=== PATIENT | male | born 2000 | race African-American/Black ===

== ENCOUNTER 2021-05-04 09:27 | Emergency (ER) | payer OTHER, SELFPAY ==
--- NOTE | ~2021-05-04 | XR_ITS ---
EXAMINATION: XR CHEST CLINICAL INFORMATION: Pain COMPARISON: None TECHNIQUE: Frontal view of the chest was obtained. FINDINGS: The cardiomediastinal silhouette is within normal limits. The lungs are well expanded. There is no focal consolidation, edema. Subtle blunting of the right costophrenic angle, from postsurgical variation versus subtle pleural thickening or trace effusion. No significant pleural effusion. No pneumothorax. No acute osseous abnormality. XR/XR chest 1V IMPRESSION: No acute pulmonary process seen.
[2021-05-04 09:41] VITALS: BP 142/84; PULSE 105; RESP 18; TEMP 36.8; O2SAT 98; BMI 33.5
--- NOTE | 2021-05-04 09:56 | ECG_ITS ---
Test Reason : chest pain Blood Pressure : / mmHG Vent. Rate : 096 BPM Atrial Rate : 096 BPM P-R Int : 158 ms QRS Dur : 120 ms QT Int : 346 ms P-R-T Axes : 040 026 055 degrees QTc Int : 437 ms Normal sinus rhythm RSR' or QR pattern in V1 suggests right ventricular conduction delay Borderline ECG No previous ECGs available Referred By: Pam Oseguera Electronically Signed By:Mode Wood
--- NOTE | 2021-05-04 10:06 | ED.CHESTPAIN ---
HPI - Chest Pain General Chief Complaint: Chest Pain Stated Complaint: chest pain blood in spit Time Seen by Provider: 05/04/21 09:55 Source: patient Mode of arrival: ambulatory Limitations: no limitations History of Present Illness MD complaint: chest pain Pertinent past history: other (RBBB) Onset (ago): month(s) (2) Timing of current episode: episodic Prior episodes: Yes Onset: after eating Pain location: substernal and left chest Pain radiation: none Severity: moderate Quality: heaviness Relieving factors: nothing Exacerbating factors: eating and supine Context: other (2 months seems worse at night and in AM notes sometimes when he coughs or brushes his teeth he sees blood x 2 months) Associated symptoms: cough Treatment prior to arrival: none Related Data Previous Rx's Medication Instructions Recorded omeprazole 20 mg capsule,delayed 20 mg PO DAILY #30 cap 05/04/21 release Allergies Allergy/AdvReac Type Severity Reaction Status Date / Time No Known Allergies Allergy Verified 05/04/21 09:45 Review of Systems Review of Systems: Constitutional : No Weight loss, No Fever, No Chills ENT/Mouth : No sore throat, No Rhinorrhea Eyes: No Eye Pain, No Swelling Cardiovascular : pos Chest Pain, no SOB, no Dyspnea on Exertion, No Orthopnea, No Edema, No Palpitations Respiratory : No Cough, No Sputum Gastrointestinal : no Nausea, No Vomiting, No Diarrhea, No abdominal Pain, No Hematochezia, No Melena Genitourinary : No Dysuria, No Urinary Frequency Musculoskeletal : No joint pain, No Myalgias, No Joint Swelling Skin : No Skin Lesions, No rash Neuro : No Weakness, No Numbness, No Dizziness, No Headache Psych : No Anxiety/Panic, No Depression Heme/Lymph: No Bruising, No Lymphadenopathy Endocrine : No Polyuria, No Polydipsia All other systems reviewed and are negative [facility] Past Medical History Attestation statement: The following information was validated with the patient. Medical History RBBB Schizophrenia Social History Social History Alcohol intake: never Patient Tobacco Use Status: Former Tobacco user Substance Use Type: Marijuana Advance Directives: No Advance Directives Information Provided: No Physical Exam Vital Signs: Vital Signs: Last Vital Signs Temp 98.8 F 05/04/21 10:50 Pulse 84 05/04/21 10:50 Resp 14 05/04/21 10:50 BP 116/73 05/04/21 10:50 Pulse Ox 94 05/04/21 10:50 BMI result Body Mass Index 33.5 Appearance: Alert. Oriented X3. No acute distress. Eyes: Pupils equal, round and reactive to light. ENT: Pharynx normal. Neck: Normal inspection. Neck supple. CVS: Normal heart rate and rhythm. Pulses normal. Respiratory: No respiratory distress. Breath sounds normal. Abdomen: Soft and non-tender. Skin: Skin warm and dry. Normal skin color. Normal skin turgor. Extremities: No lower extremity edema. No calf ttp Neuro: Oriented X 3. No motor deficit. No sensory deficit. Course Course Course Narrative: other than mild bump in LFTs stable for DC - Cr normal MDM - Chest Pain MDM Narrative Medical decision making narrative: 20 yo male with hx of schizophrenia and RBBB here with 2 months of chest pain and intermittent bouts of noting blood when he brushes his teeth or sometimes has coughing in AM and sees blood in his mucous he is a former smoker he also notes that eating bothers him and feels that when he eats his chest feels full. Does not take OTC medications. This has been going on for 2 months doubt ACS or PE (tachycardic but no signs of DVT) will obtain CXR, labs, EKG, troponin x 1. Symptoms also concerning for GERD. He was incarcerated will need TB test with PCP - wears a mask. Lab Data Result diagrams: 05/04/21 10:48 05/04/21 10:48 Labs: Lab Results 05/04/21 05/04/21 05/04/21 Range/Units 10:48 10:48 10:48 WBC 7.8 (4.8-10.8) X10*3/uL RBC 4.55 L (4.60-5.80) X10*6/uL Hgb 13.4 L (14.0-18.0) g/dl Hct 40.7 L (42.0-52.0) % MCV 89.5 (80.0-98.0) fL MCH 29.5 (27.0-33.0) pg MCHC 32.9 (31.0-36.0) g/dl RDW 12.5 (11.0-16.0) % Plt Count 258 (160-400) X10*3/uL MPV 10.2 (9.4-12.4) fL Immature Gran % (Auto) 0.8 H (0.0-0.4) % Neut % (Auto) 40.0 L (45-73) % Lymph % (Auto) 30.9 (20-40) % [place] % (Auto) 10.0 (2-11) % Eos % (Auto) 17.8 H (0-4) % Baso % (Auto) 0.5 (0-2) % Lymph # (Auto) 2.4 (1.2-4.9) X10*3/uL [place] # (Auto) 0.8 (0.1-1.2) X10*3/uL Eos # (Auto) 1.4 H (0.0-0.4) X10*3/uL Baso # (Auto) 0.0 (0.0-0.2) X10*3/uL Abs Immat Gran (auto) 0.06 H (0.00-0.03) X10*3/uL Absolute Neuts (auto) 3.1 (2.0-8.3) x10*3/uL Absolute Nucleated RBC 0.000 (0.0-0.012) X10*3/uL Nucleated RBC % (auto) 0.0 (0.0-0.2) /100WBC Sodium 140 (135-145) mmol/L Potassium 4.1 (3.3-5.1) mmol/L Chloride 109 H (96-108) mmol/L Carbon Dioxide 23 (22-29) mmol/L Anion Gap 12 (12-20) BUN 9 (9-16) mg/dL Creatinine 0.74 (0.5-1.4) mg/dL Estim Creat Clear Calc 199.8 Estimated GFR > 60 Random Glucose 115 (60-115) mg/dL Calcium 9.7 (8.4-10.2) mg/dL Magnesium 1.8 (1.6-2.6) mg/dL Total Bilirubin 0.3 (0.0-1.0) mg/dL Direct Bilirubin 0.2 (0.0-0.5) mg/dL AST 48 H (5-37) U/L ALT 117 H (0-40) U/L Alkaline Phosphatase 111 (39-117) U/L Troponin I High Sens < 3.5 (<3.5-35.0) ng/L C-Reactive Protein 0.15 (< or = 0.50) mg/dL Total Protein 7.0 (6.5-8.0) g/dL Albumin 4.3 (3.5-5.0) g/dL COVID-19 ([facility]) (Negative) COVID-19 Clin Com 05/04/21 Range/Units 10:48 WBC (4.8-10.8) X10*3/uL RBC (4.60-5.80) X10*6/uL Hgb (14.0-18.0) g/dl Hct (42.0-52.0) % MCV (80.0-98.0) fL MCH (27.0-33.0) pg MCHC (31.0-36.0) g/dl RDW (11.0-16.0) % Plt Count (160-400) X10*3/uL MPV (9.4-12.4) fL Immature Gran % (Auto) (0.0-0.4) % Neut % (Auto) (45-73) % Lymph % (Auto) (20-40) % [place] % (Auto) (2-11) % Eos % (Auto) (0-4) % Baso % (Auto) (0-2) % Lymph # (Auto) (1.2-4.9) X10*3/uL [place] # (Auto) (0.1-1.2) X10*3/uL Eos # (Auto) (0.0-0.4) X10*3/uL Baso # (Auto) (0.0-0.2) X10*3/uL Abs Immat Gran (auto) (0.00-0.03) X10*3/uL Absolute Neuts (auto) (2.0-8.3) x10*3/uL Absolute Nucleated RBC (0.0-0.012) X10*3/uL Nucleated RBC % (auto) (0.0-0.2) /100WBC Sodium (135-145) mmol/L Potassium (3.3-5.1) mmol/L Chloride (96-108) mmol/L Carbon Dioxide (22-29) mmol/L Anion Gap (12-20) BUN (9-16) mg/dL Creatinine (0.5-1.4) mg/dL Estim Creat Clear Calc Estimated GFR Random Glucose (60-115) mg/dL Calcium (8.4-10.2) mg/dL Magnesium (1.6-2.6) mg/dL Total Bilirubin (0.0-1.0) mg/dL Direct Bilirubin (0.0-0.5) mg/dL AST (5-37) U/L ALT (0-40) U/L Alkaline Phosphatase (39-117) U/L Troponin I High Sens (<3.5-35.0) ng/L C-Reactive Protein (< or = 0.50) mg/dL Total Protein (6.5-8.0) g/dL Albumin (3.5-5.0) g/dL COVID-19 ([facility]) Negative (Negative) COVID-19 Clin Com See Note ECG Data ECG #1: Attestation: I personally reviewed and interpreted this ECG as follows: ECG interpretation date: 05/04/21 ECG interpretation time: 10:06 Interpretation: Rate: 96 Rhythm: NSR [place]: normal Normal P waves. Normal SHANIA. RBBB ST T wave : normal no SHAY qTC: normal prior studies: states he has prior RBBB that he had done before he went into [facility] The study has been interpreted contemporaneously by me. . Discharge Plan Discharge Clinical Impression: Atypical chest pain, Elevated liver enzymes GERD with esophagitis Qualifiers: Esophagitis bleeding: without hemorrhage Qualified Code(s): K21.00 - Gastro-esophageal reflux disease with esophagitis, without bleeding Patient Disposition: Home, Self-Care Instructions: Chest Pain (DC), Gastroesophageal Reflux Disease (ED) Additional Instructions: return to ED for any worsening symptoms or concerns small elevation in liver enzymes - repeat with PCP in 2 weeks heart tests negative Chest xray negative TB test to be done with PCP Prescriptions: New omeprazole 20 mg capsule,delayed release(DR/EC) 20 mg PO DAILY Qty: 30 1RF Referrals: Andreas Reddy [Physician] - 2 weeks
[2021-05-04 10:50] VITALS: BP 116/73; PULSE 84; RESP 14; TEMP 37.1; O2SAT 94
[2021-05-04 10:56] LABS: MANUAL DIFF FLAG NO
[2021-05-04 11:00] LABS: Basophils Percent Auto 0.5 % (0-2); Eosinophils Absolute Auto 1.4 X10*3/uL (0.0-0.4); Eosinophils Percent Auto 17.8 % (0-4); Hematocrit 40.7 % (42.0-52.0); Hemoglobin 13.4 g/dl (14.0-18.0); Imm Gran Abs Auto 0.06 X10*3/uL (0.00-0.03); Imm Gran Pct Auto 0.8 % (0.0-0.4); Lymphocytes Absolute Auto 2.4 X10*3/uL (1.2-4.9); Lymphocytes Percent Auto 30.9 % (20-40); Mean Corpuscular HGB Conc 32.9 g/dl (31.0-36.0); Mean Corpuscular Hemoglobin 29.5 pg (27.0-33.0); Mean Corpuscular Volume 89.5 fL (80.0-98.0); Mean Platelet Volume 10.2 fL (9.4-12.4); Monocytes Absolute Auto 0.8 X10*3/uL (0.1-1.2); Neutrophils Absolute Auto 3.1 x10*3/uL (2.0-8.3); Platelet Count 258 X10*3/uL (160-400); Red Blood Count 4.55 X10*6/uL (4.60-5.80); Red Cell Distribution Width 12.5 % (11.0-16.0); White Blood Count 7.8 X10*3/uL (4.8-10.8)
[2021-05-04] MEDS: Magnesium Hydrox/Alum Hydrox 30 ML ORAL.SUSP 15 ML PO (11:00)
[2021-05-04] MEDS: Lidocaine HCl Viscous 2 % 15 ML SOLUTION MUCOUS MEM (11:01)
[2021-05-04 11:13] LABS: COVID-19 Test Negative (Negative)
[2021-05-04 11:22] LABS: Troponin-I High Sensitivity < 3.5 ng/L (<3.5-35.0)
[2021-05-04 11:24] LABS: Alanine Aminotransferase 117 U/L (0-40); Albumin Level 4.3 g/dL (3.5-5.0); Alkaline Phosphatase 111 U/L (39-117); Anion Gap 12 (12-20); Aspartate Amino Transferase 48 U/L (5-37); Bilirubin Direct 0.2 mg/dL (0.0-0.5); Bilirubin Total 0.3 mg/dL (0.0-1.0); Blood Urea Nitrogen 9 mg/dL (9-16); C Reactive Protein 0.15 mg/dL (< or = 0.50); Calcium 9.7 mg/dL (8.4-10.2); Carbon Dioxide 23 mmol/L (22-29); Chloride 109 mmol/L (96-108); Creatinine Clr Calc Pharmacy 199.8; Estimated Glomerular Filt Rate > 60; Glucose Random 115 mg/dL (60-115); Magnesium 1.8 mg/dL (1.6-2.6); Potassium 4.1 mmol/L (3.3-5.1); Sodium 140 mmol/L (135-145)
[2021-05-04 12:06] LABS: Lithium 0.39 mmol/L (0.60-1.20)
== END 2021-05-04 11:59 | disposition home or self-care (01) ==
PROVIDERS: Emergency Provider Emergency Medicine
DX: R07.89 Other chest pain (principal); K21.00 Gastro-esophageal reflux disease with esophagitis, without bleeding; R74.8 Abnormal levels of other serum enzymes; Z20.822 Contact with and (suspected) exposure to COVID-19; I45.10 Unspecified right bundle-branch block; F12.90 Cannabis use, unspecified, uncomplicated; Z72.89 Other problems related to lifestyle; Z87.891 Personal history of nicotine dependence
CPT/HCPCS: 36415; 71045; 80048; 80076; 80178; 83735; 84484; 85025; 86140; 87635; 93005; 99283; 99284

== ENCOUNTER 2021-06-28 17:37 | Emergency (ER) | payer MEDICARE, MEDICAID, SELFPAY ==
--- NOTE | ~2021-06-28 | XR_ITS ---
EXAMINATION: XR soft tissue neck, XR chest 1V CLINICAL INFORMATION: Reason for Exam swallowed Wire Tie COMPARISON: None. TECHNIQUE: AP and lateral views of the neck PA view of the chest FINDINGS: AP and lateral views of the neck show no radiographically conspicuous foreign body. Paraspinal and prevertebral soft tissues unremarkable. Normal symmetric lung volumes. No parenchymal consolidation. No pleural effusion. No pneumothorax. Cardiomediastinal silhouette and pulmonary vascularity are within normal limits. No acute osseous abnormalities. XR/XR soft tissue neck IMPRESSION: No foreign bodies are radiographically evident. Lungs are clear.
--- NOTE | ~2021-06-28 | XR_ITS ---
EXAMINATION: XR soft tissue neck, XR chest 1V CLINICAL INFORMATION: Reason for Exam swallowed Wire Tie COMPARISON: None. TECHNIQUE: AP and lateral views of the neck PA view of the chest FINDINGS: AP and lateral views of the neck show no radiographically conspicuous foreign body. Paraspinal and prevertebral soft tissues unremarkable. Normal symmetric lung volumes. No parenchymal consolidation. No pleural effusion. No pneumothorax. Cardiomediastinal silhouette and pulmonary vascularity are within normal limits. No acute osseous abnormalities. XR/XR chest 1V IMPRESSION: No foreign bodies are radiographically evident. Lungs are clear.
[2021-06-28 17:43] VITALS: BP 132/70; PULSE 83; RESP 18; TEMP 36.6; O2SAT 98; BMI 40.0
--- NOTE | 2021-06-28 18:24 | ED.GENADULT ---
HPI - General Adult General Chief complaint: General Medical Stated complaint: throat pain/peice of plastic stuck in throat Time Seen by Provider: 06/28/21 18:24 Source: patient Mode of arrival: ambulatory Limitations: no limitations History of Present Illness HPI narrative: Patient apparently ate twist tie while eating hamburger feel/foreign body sensation in the throat no vomiting no chest pain no abdominal pain no speech problem Related Data Home Medications Medication Instructions Recorded Confirmed bisacodyl 5 mg tablet 5 mg PO BEDTIME 06/15/21 06/15/21 chlorpromazine 200 mg tablet 200 mg PO BEDTIME 06/15/21 06/15/21 lithium carbonate 300 mg capsule 0 mg PO BID PRN 06/15/21 06/15/21 mirtazapine 15 mg tablet 15 mg PO BEDTIME 06/15/21 06/15/21 risperidone 3 mg tablet 3 mg PO BID 06/15/21 06/15/21 sennosides 8.6 mg tablet 8.6 mg PO BID 06/15/21 06/15/21 Previous Rx's Medication Instructions Recorded omeprazole 20 mg capsule,delayed 20 mg PO DAILY #30 cap 05/04/21 release Allergies Allergy/AdvReac Type Severity Reaction Status Date / Time No Known Allergies Allergy Verified 06/28/21 17:42 Review of Systems Review of Systems: Yes all other systems are reviewed and are negative [facility] Past Medical History Attestation statement: The following information was validated with the patient. Medical History (Updated 06/28/21 @ 19:06 by Mayito Mortnesen MD) RBBB Schizophrenia Family History Family History (Updated 06/15/21 @ 11:50 by Tuan Willingham PA-C) Mother Breast cancer, Onset Age: 59 Social History Social History Housing: Assisted Living Facility Alcohol intake: never Patient Tobacco Use Status: Former Tobacco user e-Cigarette/Vaping Use: Never Used Second Hand Smoke Exposure: No Substance Use Type: Marijuana Advance Directives: No Advance Directives Information Provided: No service: No Current occupational status: unemployed and disabled Current occupational exposures/hazards: No Cognitive needs: Yes Hearing needs: No Vision needs: No Physical Exam ED Vital Signs: Vital Signs - 24 hr 06/28/21 17:43 Temperature 97.9 F Pulse Rate 83 Respiratory Rate 18 Blood Pressure 132/70 Pulse Oximetry 98 BMI result Body Mass Index 40.0 Appearance: Alert. Oriented X3. No acute distress. Anxious ENT: Pharynx normal. Oral Mucosa moist Neck: Normal inspection. Neck supple. No stridor CVS: Normal heart rate and rhythm. Pulses normal. Respiratory: No respiratory distress. Equal air entry bilateral, no wheezing/rales/rhonchi Abdomen: Soft and nontender. Bowel sounds are present, no mass palpable, Neuro: Oriented X 3. Medical Decision Making MDM Narrative Medical decision making narrative: X-ray of the neck and chest x-ray negative for in foreign body patient denies any significant abdominal pain discharge patient home with advise to come back to the ER if abdominal pain Critical Care Time Critical Care Time Critical Care Time: No Discharge Plan Discharge Clinical Impression: Foreign body, swallowed Patient Disposition: Home, Self-Care Instructions: Foreign Body Ingestion (ED) Additional Instructions: Report to the ER if increased abdominal pain/bleeding per rectum We do not see any foreign body in the x-ray Prescriptions: No Action omeprazole 20 mg capsule,delayed release(DR/EC) 20 mg PO DAILY Qty: 30 1RF chlorpromazine 200 mg tablet 200 mg PO BEDTIME 0RF mirtazapine 15 mg tablet 15 mg PO BEDTIME 0RF lithium carbonate 300 mg capsule 0 mg PO BID PRN0RF risperidone 3 mg tablet 3 mg PO BID 0RF sennosides 8.6 mg tablet 8.6 mg PO BID 0RF bisacodyl 5 mg tablet 5 mg PO BEDTIME 0RF Interventions: ED Discharge Assessment Last Done: 06/28/21 19:10 Discharge Date/Time: 06/28/21 19:11
== END 2021-06-28 19:11 | disposition home or self-care (01) ==
PROVIDERS: Emergency Provider Internal Medicine
DX: R07.0 Pain in throat (principal); R09.89 Other specified symptoms and signs involving the circulatory and respiratory systems; Z79.899 Other long term (current) drug therapy; Z87.891 Personal history of nicotine dependence
CPT/HCPCS: 70360; 71045; 99283

== ENCOUNTER 2021-09-10 11:07 | Outpatient (REF) | payer MEDICARE, MEDICAID, SELFPAY ==
--- NOTE | ~2021-09-10 | XR_ITS ---
EXAMINATION: XR CHEST CLINICAL INFORMATION: Coughing up blood and mucus x1 year COMPARISON: None TECHNIQUE: 2 views of the chest were obtained. FINDINGS: No significant abnormality is noted involving the heart, lungs, mediastinum, bony thorax or soft tissues. XR/XR chest 2V IMPRESSION: Unremarkable chest examination.
== END 2021-09-10 11:08 | disposition home or self-care (01) ==
LOC: HO.XRAY 11:07
PROVIDERS: PCP Physician Assistant; Visit Provider Physician Assistant
DX: R04.2 Hemoptysis (principal)
CPT/HCPCS: 71046

== ENCOUNTER 2021-09-11 10:03 | Outpatient (REF) | payer MEDICARE, MEDICAID, SELFPAY ==
[2021-09-11 11:18] LABS: Hematocrit 42.5 % (42.0-52.0); Mean Corpuscular HGB Conc 32.9 g/dl (31.0-36.0); Mean Corpuscular Hemoglobin 28.7 pg (27.0-33.0); Mean Corpuscular Volume 87.1 fL (80.0-98.0); Mean Platelet Volume 10.5 fL (9.4-12.4); Platelet Count 349 X10*3/uL (160-400); Red Blood Count 4.88 X10*6/uL (4.60-5.80); Red Cell Distribution Width 12.4 % (11.0-16.0)
[2021-09-11 11:27] LABS: Estimated Average Glucose 108 mg/dL; Hemoglobin A1C 130.5016 umol/L; Hemoglobin A1c % 5.4 %
[2021-09-11 12:09] LABS: Alanine Aminotransferase 48 U/L (0-40); Albumin Level 4.6 g/dL (3.5-5.0); Alkaline Phosphatase 100 U/L (39-117); Anion Gap 15 (12-20); Aspartate Amino Transferase 37 U/L (5-37); Bilirubin Total < 0.2 mg/dL (0.0-1.0); Blood Urea Nitrogen 14 mg/dL (9-16); Calcium 9.8 mg/dL (8.4-10.2); Carbon Dioxide 23 mmol/L (22-29); Chloride 107 mmol/L (96-108); Cholesterol 220 mg/dL; Estimated Glomerular Filt Rate > 60; Glucose Fasting 92 mg/dL (60-99); HDL Cholesterol 64 mg/dL; LDL Cholesterol Calculated 113 mg/dl; Potassium 4.6 mmol/L (3.3-5.1); Sodium 140 mmol/L (135-145); Total Protein 7.7 g/dL (6.5-8.0); Triglycerides 219 mg/dL
[2021-09-11 12:12] LABS: TSH reflex Free T4 0.81 uIU/mL (0.32-4.0)
== END 2021-09-11 10:04 | disposition home or self-care (01) ==
LOC: HO.LAB 10:03
PROVIDERS: PCP Physician Assistant; Visit Provider Physician Assistant
DX: Z13.29 Encounter for screening for other suspected endocrine disorder (principal); Z13.220 Encounter for screening for lipoid disorders
CPT/HCPCS: 36415; 80053; 80061; 83036; 84443; 85027

== ENCOUNTER → 2021-09-15 12:31 | Outpatient (BNVA) | payer MEDICARE, MEDICAID, SELFPAY | PROVIDERS: PCP Physician Assistant; Visit Provider Physician Assistant | DX: E66.01 Morbid (severe) obesity due to excess calories (principal); K59.01 Slow transit constipation; K21.9 Gastro-esophageal reflux disease without esophagitis; Z68.42 Body mass index [BMI] 45.0-49.9, adult | CPT/HCPCS: 99202 ==

== ENCOUNTER 2021-09-24 14:53 | Outpatient (REF) | payer MEDICARE, MEDICAID, SELFPAY ==
--- NOTE | ~2021-09-24 | CT_ITS ---
EXAMINATION: CT CHEST WITHOUT CONTRAST CLINICAL INFORMATION: Hemoptysis. COMPARISON: Normal chest x-ray 09/10/2021. TECHNIQUE: Multidetector volumetric CT imaging of the chest was done. Axial MIP volume rendering provided. Sagittal and coronal reformatted images were obtained. Patient refused IV contrast. This CT examination was performed using dose optimization techniques as appropriate, variously including the following: *Automated exposure control *Adjustment of mA and/or kV according to patient size (this includes techniques or standardized protocols for targeted exams where dose is matched to indication/reason for exam; i.e. extremities or head) *Use of iterative reconstruction technique DLP: 300 mGy-cm FINDINGS: OCCUPATIONAL MEDICINE SPECIALIST: Unremarkable. LUNGS: The lungs are well expanded and clear of acute pneumonic process. There are no pulmonary nodules, mass or consolidation. No ground-glass density, bronchiectasis or interstitial thickening. Minimal focal atelectatic changes are seen in the right lung base. MEDIASTINUM: The thyroid lobes are symmetric and normal. The trachea and the bronchi are widely patent. There is residual thymus visualized in the anterior mediastinum. There is no pericardial effusion. No abnormal size mediastinal or hilar lymph nodes. PLEURA: There is no pleural effusion. No pleural mass or thickening. AXILLA: No lymphadenopathy. UPPER ABDOMEN: The right hepatic lobe is mildly attenuated but no focal lesion is seen. Visualized spleen, gallbladder and pancreas appear unremarkable. OSSEOUS STRUCTURES: No lytic or sclerotic process is seen. CT/CT chest wo con IMPRESSION: Focal atelectatic changes in the right lung base. Fleischner guidelines were followed.
== END 2021-09-24 14:54 | disposition home or self-care (01) ==
LOC: HO.CT 14:53
PROVIDERS: Visit Provider Physician Assistant
DX: R04.2 Hemoptysis (principal)
CPT/HCPCS: 71250

== ENCOUNTER → 2021-11-12 11:05 | Outpatient (BNVA) | payer MEDICARE, MEDICAID, SELFPAY | PROVIDERS: PCP Physician Assistant; Visit Provider Dietitian, Registered | DX: E66.01 Morbid (severe) obesity due to excess calories (principal); Z68.42 Body mass index [BMI] 45.0-49.9, adult; Z71.3 Dietary counseling and surveillance | CPT/HCPCS: 97802 ==

== ENCOUNTER → 2021-11-18 12:11 | Outpatient (BNVA) | payer MEDICARE, MEDICAID, SELFPAY | PROVIDERS: PCP Physician Assistant; Referring Provider Physician Assistant; Visit Provider Physician Assistant | DX: K21.9 Gastro-esophageal reflux disease without esophagitis (principal); K58.2 Mixed irritable bowel syndrome; F17.210 Nicotine dependence, cigarettes, uncomplicated | CPT/HCPCS: 99212 ==

== ENCOUNTER → 2022-01-26 10:25 | Outpatient (REF) | payer MEDICARE, MEDICAID, SELFPAY ==
--- NOTE | 2022-01-26 10:29 | CA_ITS ---
Acquisition Time: 2022-01-26 10:43:58 Total Exercise Time: 00:06:56 Test Indications: CHEST PAIN Medications: Protocol: LINDA Max HR: 153 BPM 76% of Pred: 199 BPM Max BP: 164/062 mmHG Max Work Load: 8.4 METS Exercise stress test with exercise 6 min 59 sec of Linda protocol, achieving 76% MPHR, 8.4 METS, with report of being tired and need to stop, with mild sob, no chest discomfort, with normotensive response to exercise, with nondiagnositc EKG for ischemia due to suboptimal heart rate, without ischemic changes noted at achieved workload. Test reviewed with Dr Al Referred By: Tuan Willingham Overread By: BLAYNE GRANDE
== END ==
LOC: HO.CARD 10:25
PROVIDERS: PCP Physician Assistant; Visit Provider Physician Assistant
DX: R07.9 Chest pain, unspecified (principal)
CPT/HCPCS: 93017

== ENCOUNTER → 2022-02-02 12:56 | Outpatient (BNVA) | payer MEDICARE, MEDICAID, SELFPAY | PROVIDERS: PCP Physician Assistant; Referring Provider Physician Assistant; Visit Provider Physician Assistant | DX: E66.01 Morbid (severe) obesity due to excess calories (principal); K21.9 Gastro-esophageal reflux disease without esophagitis; Z68.43 Body mass index [BMI] 50.0-59.9, adult | CPT/HCPCS: 99212 ==

== ENCOUNTER 2022-04-30 08:18 | Outpatient (REF) | payer MEDICARE, MEDICAID, SELFPAY ==
--- NOTE | ~2022-04-30 | US_ITS ---
EXAMINATION: US ABDOMEN COMPLETE CLINICAL INFORMATION: Morbid obesity, gastric pain. COMPARISON: None TECHNIQUE: Real-time imaging of the abdominal viscera. FINDINGS: PANCREAS: Normal. ABDOMINAL AORTA: The proximal, mid, and distal segments are normal in caliber. INFERIOR VENA CAVA: Visualized portions are normal. LIVER: The liver is normal in size. The liver contour is normal. There is diffuse increased liver parenchymal echogenicity, with pericholecystic sparing. No focal hepatic lesion. There is no intrahepatic biliary duct dilatation seen. GALLBLADDER: Normal. The gallbladder is physiologically distended without evidence of stones, sludge, polyps, wall thickening or pericholecystic fluid. COMMON BILE DUCT: Normal in caliber measuring 0.5 cm in diameter. RIGHT KIDNEY: Normal. No hydronephrosis. No renal calculi or focal parenchymal lesions. The kidney measures 11.6 cm in maximum dimension. LEFT KIDNEY: Normal. No hydronephrosis. No renal calculi or focal parenchymal lesions. The kidney measures 11.5 cm in maximum dimension. SPLEEN: Normal. The spleen measures 11.4 cm in maximum dimension. FREE FLUID: None. US/US abdomen complete IMPRESSION: There is generalized increase in hepatic echotexture, consistent with fatty infiltration or hepatocellular disease. Please correlate clinically. Characteristic pericholecystic sparing favors fatty infiltration. No focal hepatic mass or intrahepatic biliary dilatation is seen.
== END 2022-04-30 08:19 | disposition home or self-care (01) ==
LOC: HO.US 08:18
PROVIDERS: Visit Provider Physician Assistant
DX: E66.01 Morbid (severe) obesity due to excess calories (principal); Z68.42 Body mass index [BMI] 45.0-49.9, adult
CPT/HCPCS: 76700

== ENCOUNTER 2022-09-15 13:06 | Outpatient (AMB) | payer MEDICARE, MEDICAID, SELFPAY ==
[2022-09-15 13:07] VITALS: BP 130/78; PULSE 113; O2SAT 96; BMI 55.5
--- NOTE | 2022-09-15 13:07 | A.OFFPC_ITS ---
Vital Signs 09/15/22 13:07 Height 5 ft 6 in Weight 344 lb 2 oz BMI 55.5 BP 130/78 Blood Pressure Location Lt brachial Position Sitting Pulse 113 H Pulse Source Pulse Oximeter Pulse Oximetry (%) 96 Oxygen Delivery Method Room Air Intake Visit Reasons: PE Intake Note: Pt c/o: chest discomfort at times, lower left back pain when lying down, coughing up blood in the mornings all these symptoms have been present for 2 yrs also concerned about throat states something is stuck or growing in his throat also lapel padder blindstitch from senior care states he needs a refill on all his medications Communications Manager Required: No Accompanied by: Other Relationship Allergies No Known Allergies Allergy (Verified 09/15/22 13:30) Medication List - Last Reconciled 09/15/22 by Tuan Willingham PA-C acetaminophen (Tylenol) 650 mg (2 x 325 mg) PO Q6H PRN aripiprazole 30 mg PO DAILY PRN bisacodyl 5 mg PO BEDTIME 30 days chlorpromazine 200 mg PO BEDTIME 30 days hydrocortisone valerate 0.2% 1 appl topical ONCE PRN 10 days lactulose 20 grams (30 mL) PO BID PRN 10 days melatonin mg PO mirtazapine 15 mg PO BEDTIME omeprazole 40 mg PO QAM psyllium husk (Reguloid (psyllium husk)) 0.4 grams PO BID 30 days sennosides (senna) 17.2 mg (2 x 8.6 mg) PO BEDTIME 90 days Tobacco use date assessed: 04/09/22 HPI PE HPI Details Patient is a 22-year-old male here today for routine annual physical. Patient has a past medical history significant for morbid obesity, tobacco dependency, major depressive disorder, bipolar disorder and schizophrenia. Concerns--> continues to report hemoptysis, also reports having globus sensation in his throat feeling as though something stuck in his throat when he swallows. Also interested in doing a sleep study as he does report daytime somnolence and loud snoring at night. . . Schizophrenia / bipolar disorder: Followed by psychiatrist whom manages his mental health medications .. Obesity: Has unfortunately gained weight since last office visit. Today's BMI of 55. Of note did report increased dose of Depakote recently from his psychiatrist. Vaccines: Up-to-date with COVID vaccine and tetanus vaccine, [facility] Medical History RBBB Schizophrenia Family History Mother Breast cancer, Onset Age: 59 Social History Housing: Assisted Living Facility Alcohol intake: never Patient Tobacco Use Status: Current everyday Tobacco user Tobacco use type: Cigarette Cigarette Packs Per Day: 1 e-Cigarette/Vaping Use: Never Used Second Hand Smoke Exposure: No Substance Use Type: Marijuana service: No Current occupational status: unemployed and disabled Current occupational exposures/hazards: No Cognitive needs: Yes Hearing needs: No Vision needs: No Questionnaire PHQ-9 Over the last 2 weeks, how often have you been bothered by any of the following problems? 1. Little interest or pleasure in doing things: not at all 2. Feeling down, depressed, or hopeless: not at all 3. Trouble falling or staying asleep, or sleeping too much: not at all 5. Poor appetite or overeating: not at all 6. Feeling bad about yourself - or that you are a failure or have let yourself or your family down: not at all 7. Trouble concentrating on things, such as reading the newspaper or watching television: not at all 8. Moving or speaking so slowly that other people could have noticed. Or the opposite - being so fidgety or restless that you have been moving around a lot more than usual: not at all 9. Thoughts that you would be better off or of hurting yourself in some way: not at all Source: Developed by Drs. Andreas Colin, Penny Patel, Matias Diggs and colleagues, with an educational keshav from [employer]. Thrive Questionnaire Date Thrive assessed: 04/09/22 What is your living situation today?: I have a steady place to live Within the past 12 months, did the food you bought not last and you didn't have the money to get more?: Never true Within the past 12 months, did you worry whether your food would run out before you got money to buy more?: Never true Do you have trouble paying for medicines?: No Do you have trouble getting transportation to medical appointments?: No Do you have trouble with day-to-day activities such as bathing, preparing meals, shopping, managing finances, etc.?: No Are you currently unemployed and looking for a job?: No Are you interested in more education?: No AUDIT C Alcohol Use Questionnaire (AUDIT-C) 1. How often do you have a drink containing alcohol?: Never Total Score: 0 SOILA-7 AMB Questionnaire SOILA-7 Date SOILA - 7 assessed: 06/15/21 Feeling nervous, anxious, or on edge: 0 = Not at all Not being able to stop or control worryin = Not at all Worrying too much about different things: 0 = Not at all Trouble relaxin = Not at all Being so restless that it is hard to sit still: 0 = Not at all Becoming easily annoyed or irritable: 0 = Not at all Feeling afraid as if something awful might happen: 0 = Not at all Total SOILA-7 score (0-4 normal; 5-9 mild; 10-14 moderate; 15-21 severe): 0 Source: Developed by Drs. Andreas Colin, Penny Patel, Matias Diggs and colleagues, with an educational keshav from [employer]. Review of Systems Const Denies body aches, Denies chills, Denies excessive sweating, Denies fatigue, Denies fever(s) and Denies headache(s) Eyes Denies blurry vision ENT Denies dysphagia, Denies vertigo, Denies dizziness, Denies headache(s), Denies hearing loss and Denies tinnitus Card Denies chest pain, Denies chest pain with activity, Denies syncope, Denies irregular heart rhythm and Denies dyspnea Resp Denies chest congestion, Denies cough, Denies hemoptysis, Denies dyspnea and Denies wheezing GI Denies abdominal pain, Denies melena, Denies hematochezia, Denies coffee ground emesis, Denies dysphagia, Denies diarrhea, Denies nausea and Denies vomiting Denies difficulty urinating, Denies dysuria, Denies urinary frequency, Denies urinary hesitancy and Denies urinary urgency Musc Denies arthralgias, Denies limited range of motion, Denies muscle cramps and Denies muscle weakness Skin/Breast Denies rash and Denies skin ulcer Neuro Denies Abnormal speech present, Denies confusion, Denies vertigo, Denies dizziness, Denies syncope, Denies headache(s), Denies memory loss and Denies seizure-like activity Psych Denies anxiety, Denies confusion, Denies depression, Denies memory loss, Denies panic attacks and Denies paranoia Endo Denies excessive sweating, Denies fatigue, Denies flushing, Denies polydipsia and Denies polyuria Aller/Immun Denies wheezing Physical exam (Primary Care) Vital Signs: Last Vital Signs Pulse 113 H 09/15/22 13:07 BP 130/78 09/15/22 13:07 Pulse Ox 96 09/15/22 13:07 Oxygen Delivery Method Room Air 09/15/22 13:07 BMI result Body Mass Index 55.5 BMI Assessment/Plan discussion: High Tobacco/Smoking Status: Tobacco use Status Tobacco use date assessed 04/09/22 09/15/22 13:24 Patient Tobacco Use Status Current everyday Tobacco 09/15/22 13:24 Tobacco use type Cigarette 09/15/22 13:24 e-Cigarette/Vaping Use Never Used 09/15/22 13:24 Are you ready to quit: Yes Relapse Prevention: discussed the importance of a supportive environment, discussed negative mood or depression after quitting, weight gain after smoking is common and discussed dietary, exercise and/or lifestyle changes Number of minutes spent counselin CPT code: 91525 - 4-10 Minutes Thrive Assessment: Date of Thrive Assessment Date Thrive assessed 04/09/22 09/15/22 13:24 Const Other: Morbidly obese Seems somewhat somnolent in office today General: cooperative, comfortable, no acute distress, alert and awake; No confusion Orientation/consciousness: oriented to person, oriented to place, patient oriented x3 and No confusion HENMT Head: Yes normocephalic Ears: external ears normal and TM's normal bilaterally Face and sinus: No sinus tenderness Mouth: Normal oral and palatal mucosa present and tongue normal Teeth and gingiva: dentition normal and gingiva normal Throat: Yes posterior oropharynx normal, Yes tonsils normal and Yes uvula midline Eyes Conjunctivae: conjunctivae normal Sclerae: sclerae normal Pupils: Equal, round and reactive pupils present EOM: EOMs intact bilaterally Direct Ophthalmoscopy: No no photophobia Neck Neck: Yes no lymphadenopathy, No tender and Yes no JVD Thyroid: Thyroid normal Carotids: no bruits Chest Chest palpation & inspection: no tenderness Resp Effort & Inspection: normal respiratory effort, no audible wheezes, not labored and no stridor Auscultation: no crackles, no rales, no rhonchi and no wheezes Cardio Jugular venous distension: no JVD Rate: regular rate, not bradycardic and not tachycardic Rhythm: regular rhythm Bruits: no carotid bruits Peripheral pulses: Peripheral pulses 2+ throughout GI Inspection: Yes normal to inspection, No abdominal wall ecchymosis and No visible herniation Palpation (GI): Soft to palpation, nontender, no guarding, not rigid and No hepatosplenomegaly present Auscultation: normoactive bowel sounds General: Yes no CVA tenderness Back/Spine/Pelvis Back: no CVA tenderness and No back tenderness Cervical Spine: cervical ROM normal Thoracic/Lumbar Spine: thoracic and lumbar spine normal to inspection, straight leg raise negative bilaterally, No thoraco-lumbar ROM limited and No lumbar spinal tenderness Skin Lesions: no lesions Rashes: no rashes Wounds: no wounds Neuro General: oriented to person, oriented to place, patient oriented x3, CN's II-XI intact bilaterally and No confusion Cranial nerves: Yes Equal, round and reactive pupils present and Yes Normal accommodation reflex present Cognition (Neuro): normal cognition Speech: No Abnormal speech present Gait exam (Neuro): Normal gait present Motor exam (neuro): 5/5 motor strength present throughout Extrem Right upper extremity: full ROM; no cyanosis Left upper extremity: full ROM; no cyanosis Right lower extremity: no edema Left lower extremity: no edema Psych Appearance: grossly normal Mental Status: mental status grossly normal Affect: normal affect Attitude: cooperative Thought process: Normal thought process present Assessment and Plan Assessment & Plan (1) Annual physical exam: Code(s): Z00.00 - Encounter for general adult medical examination without abnormal findings (2) Severe obesity (BMI >= 40): Code(s): E66.01 - Morbid (severe) obesity due to excess calories Plan: Patient does understand his BMI is over 50 will work on being more physically active and adapting to better eating habits to reduce his weight (3) Tobacco dependence: Comment: Nicotine patch he removes Smokes at least a pack per day Code(s): F17.200 - Nicotine dependence, unspecified, uncomplicated Plan: Unfortunately patient continues to smoke a pack-a-day, he does understand he needs to quit and thus will like to try nicotine patches to help him quit. (4) Dysphagia: Code(s): R13.10 - Dysphagia, unspecified Qualifiers: Dysphagia type: oropharyngeal phase Qualified Code(s): R13.12 - Dysphagia, oropharyngeal phase Plan: He does report having globus sensation and a hot sensation when he swallows. Will send for barium swallow to evaluate for esophageal stricture (5) JASPER (obstructive sleep apnea): Code(s): G47.33 - Obstructive sleep apnea (adult) (pediatric) Plan: Patient's Elkin Sleepiness Scale score 20. Does have major risk factors for obstructive sleep apnea clean large neck girth, morbid obesity and continued tobacco dependency. (6) MDD (major depressive disorder), recurrent episode, moderate: Code(s): F33.1 - Major depressive disorder, recurrent, moderate Plan: Patient continues to follow a psychiatrist who manages his mental health medication. (7) Schizophrenia: Code(s): F20.9 - Schizophrenia, unspecified Qualifiers: Schizophrenia type: paranoid schizophrenia Qualified Code(s): F20.0 - Paranoid schizophrenia Plan: Seems to be fairly stable on his antipsychotic medications. Does seem somewhat sedated on higher dose of Depakote now. (8) Bipolar disorder: Code(s): F31.9 - Bipolar disorder, unspecified Qualifiers: Active/Remission status: in partial remission Most recent bipolar episode type: manic Qualified Code(s): F31.73 - Bipolar disorder, in partial remission, most recent episode manic Plan: Again followed by Psychiatry who manages mental health medications. Orders: Orders FL barium swallow Today R13.10 - Dysphagia, unspecified RT PSG in-lab sleep study Today G47.33 - Obstructive sleep apnea (adult) (pediatric) Medications: New nicotine 1 patch transdermal DAILY 14 days 14 ea 0RF F17.200 - Nicotine dependence, unspecified, uncomplicated nicotine 1 patch transdermal DAILY 14 days 14 ea 0RF F17.200 - Nicotine dependence, unspecified, uncomplicated Refilled acetaminophen (Tylenol) 650 mg (2 x 325 mg) PO Q6H PRN 60 tabs 0RF fever or pain R51.9 - Headache, unspecified bisacodyl 5 mg PO BEDTIME 30 days 30 tabs 3RF K59.00 - Constipation, unspecified lactulose 20 grams (30 mL) PO BID 10 days PRN 600 mL 0RF constipation E66.01 - Morbid (severe) obesity due to excess calories, K59.01 - Slow transit constipation, Z68.41 - Body mass index [BMI] 40.0-44.9, adult omeprazole 40 mg PO QAM 28 caps 3RF psyllium husk (Reguloid (psyllium husk)) 0.4 grams PO BID 30 days 60 caps 6RF K59.01 - Slow transit constipation sennosides (senna) 17.2 mg (2 x 8.6 mg) PO BEDTIME 90 days 180 caps 2RF K59.01 - Slow transit constipation Coding Level of Care Code Est Pt Prev Care 18-39y(96415) Diagnoses Annual physical exam Z00.00 Severe obesity (BMI >= 40) E66.01 Tobacco dependence F17.200 Dysphagia R13.12 Dysphagia type: oropharyngeal phase JASPER (obstructive sleep apnea) G47.33 MDD (major depressive disorder), recurrent episode, moderate F33.1 Schizophrenia F20.0 Schizophrenia type: paranoid schizophrenia Bipolar disorder F31.73 Active/Remission status: in partial remission Most recent bipolar episode type: manic Additional Codes Vital Signs *Quality* - CPT code: 76734 - 4-10 Minutes ([id number])
== END 2022-09-15 14:16 | disposition home or self-care (01) ==
PROVIDERS: Visit Provider Physician Assistant
DX: Z00.00 Encounter for general adult medical examination without abnormal findings (principal); E66.01 Morbid (severe) obesity due to excess calories; Z68.43 Body mass index [BMI] 50.0-59.9, adult; F17.210 Nicotine dependence, cigarettes, uncomplicated; R13.12 Dysphagia, oropharyngeal phase; G47.33 Obstructive sleep apnea (adult) (pediatric); F33.1 Major depressive disorder, recurrent, moderate; F20.0 Paranoid schizophrenia; F31.73 Bipolar disorder, in partial remission, most recent episode manic
CPT/HCPCS: 99395; 99406

== ENCOUNTER → 2022-09-28 19:30 | Outpatient (REF) | payer MEDICARE, MEDICAID, SELFPAY | LOC: HO.SL 19:30 | PROVIDERS: PCP Physician Assistant; Visit Provider Physician Assistant | DX: G47.33 Obstructive sleep apnea (adult) (pediatric) (principal) | CPT/HCPCS: 95810 ==

== ENCOUNTER → 2022-09-28 22:34 | Outpatient (BNV) | payer MEDICARE, MEDICAID, SELFPAY | PROVIDERS: PCP Physician Assistant; Visit Provider Psychiatry & Neurology Neurology | DX: G47.33 Obstructive sleep apnea (adult) (pediatric) (principal) | CPT/HCPCS: 95810 ==

== ENCOUNTER 2022-10-13 12:25 | Outpatient (AMB) | payer MEDICARE, MEDICAID, SELFPAY ==
[2022-10-13 13:09] VITALS: BMI 57.1
--- NOTE | 2022-10-13 13:09 | A.OFFVIS_ITS ---
Intake VS Expanded 10/13/22 13:09 10/18/22 13:41 Height 5 ft 6 in 5 ft 6 in Weight 353 lb 9.943 oz 354 lb BMI 57.1 57.1 Intake Visit Reasons: Obesity Allergies No Known Allergies Allergy (Verified 09/15/22 13:30) HPI Nutrition Presentation Details Pt presents for MNT for obesity. The Pt was seen for nutrition in 11/2021. Pt expresses interest in making dietary modifications for weight loss. He repor ts wanting to make home made meals however he reports all his meals are at fast foods and lately he verbalizes having large amount of foods at night > 1000 calories from food and > 300 calories from beverages. XNH-Wfvzoqz-Ov.Jeor Equation Height 5 ft 6 in Weight 354 lb Resting Metabolic Rate 2548.62 Calculated Activity Level Sedentary Calories Needed to Maintain Weight 3058.34 Diagnosis Nutrition problem #1 excessive oral intake As related to (etiology) #1 diagnosis As evidenced by (sign/symptom) #1 high BMI (57.1 on 10/13/22) Most Recent Diabetes Results: No Data to Display [facility] Medical History RBBB Schizophrenia Family History Mother Breast cancer, Onset Age: 59 Social History Housing: Assisted Living Facility Alcohol intake: never Patient Tobacco Use Status: Current everyday Tobacco user Tobacco use type: Cigarette Cigarette Packs Per Day: 1 e-Cigarette/Vaping Use: Never Used Second Hand Smoke Exposure: No Substance Use Type: Marijuana service: No Current occupational status: unemployed and disabled Current occupational exposures/hazards: No Cognitive needs: Yes Hearing needs: No Vision needs: No Assessment & Plan Assessment & Plan (1) Severe obesity (BMI >= 40): Code(s): E66.01 - Morbid (severe) obesity due to excess calories Plan: Work on reducing 500-1000 calories from sugary beverages daily ? Pt presents today to restart working on diet modifications 10/13/22: switch to low sugar beverages with meals 4 times/d at follow up (Date: ): met 25% 50% 100% Not met Used wt : 149 kg Est kcal as per MSJ: 3012-561 = 2512 (40% carb, 30% fat/prot) Est fluid needs:3725 ml/d (25 ml/kg bw) Rec fiber: increase to 8-10 g per day and gradually increase to 35 g or as tolerated Rec Na: < 2000 mg /d Educate patient on: (R= Reviewed, V = verbalizes understanding N/R= Needs review N/A= not applicable) * Food sources of carbohydrates and serving adequate serving sizes : R * Difference between complex carbohydrates and simple carbohydrates, role of fiber: R * Differences between fats (MUFA/PUFA/saturated fats, trans fats) and food sources of various fats: R * Food sources of sodium and salt and healthy modifications for heart health and kidney health: N/R * Vitamins and minerals: N/R * How to interpret food labels: R * Healthy Plate method concept: R V * Physical activity: benefits and precaution: R V Patient Instructions: HAve water or sugar free beverages instead of sugar containing beverages with meals or snack - see list of low sugar options to help you with weight loss Reduce on fried foods have a salad as a side dish instead of fries 5 times a week Have a meal substitution at bedtime - see list of meal substitutions Coding Level of Care Code Nutr Indiv Intake (37446) Diagnoses Severe obesity (BMI >= 40) E66.01 Time Spent (min) 30
[2022-10-18 13:41] VITALS: BMI 57.1
== END 2022-10-13 13:33 | disposition home or self-care (01) ==
PROVIDERS: PCP Physician Assistant; Visit Provider Dietitian, Registered
DX: E66.01 Morbid (severe) obesity due to excess calories (principal)

== ENCOUNTER → 2022-10-13 12:25 | Outpatient (BNVA) | payer MEDICARE, MEDICAID, SELFPAY | PROVIDERS: PCP Physician Assistant; Visit Provider Dietitian, Registered | DX: E66.01 Morbid (severe) obesity due to excess calories (principal); Z68.43 Body mass index [BMI] 50.0-59.9, adult | CPT/HCPCS: 97802 ==

== ENCOUNTER 2022-12-02 12:59 | Outpatient (AMB) | payer MEDICARE, MEDICAID, SELFPAY ==
[2022-12-02 13:12] VITALS: BMI 58.2
--- NOTE | 2022-12-02 13:12 | MHC.AMNUTRGE ---
Intake VS Expanded 12/02/22 13:12 Height 5 ft 6 in Weight 360 lb 10.82 oz BMI 58.2 Intake Visit Reasons: Obesity pt confirmed Allergies No Known Allergies Allergy (Verified 09/15/22 13:30) HPI Nutrition Presentation Details Pt presents for MNT f/u for morbid obesity Pt presents accompanied by a staff Pt reports he was recently hospitalized for 2 wks related to mental health Reports no significant diet modifications Most Recent Diabetes Results: No Data to Display [facility] Medical History RBBB Schizophrenia Family History Mother Breast cancer, Onset Age: 59 Social History Housing: Assisted Living Facility Alcohol intake: never Patient Tobacco Use Status: Current everyday Tobacco user Tobacco use type: Cigarette Cigarette Packs Per Day: 1 e-Cigarette/Vaping Use: Never Used Second Hand Smoke Exposure: No Substance Use Type: Marijuana service: No Current occupational status: unemployed and disabled Current occupational exposures/hazards: No Cognitive needs: Yes Hearing needs: No Vision needs: No Assessment & Plan Assessment & Plan (1) Severe obesity (BMI >= 40): Code(s): E66.01 - Morbid (severe) obesity due to excess calories Plan: Work on reducing 500-1000 calories from sugary beverages daily ? Pt presents today to restart working on diet modifications 10/13/22: switch to low sugar beverages with meals 4 times/d at follow up (Date: 12/02/22 ): not met Used wt : 149 kg Est kcal as per MSJ: 3012-500 = 2512 (40% carb, 30% fat/prot) Est fluid needs:3725 ml/d (25 ml/kg bw) Rec fiber: increase to 8-10 g per day and gradually increase to 35 g or as tolerated Rec Na: < 2000 mg /d Educate patient on: (R= Reviewed, V = verbalizes understanding N/R= Needs review N/A= not applicable) Reviewed relationship of high fat /high sugar and GI side effects and beneficial foods (fruits/yogurts, low fat food options) Patient Instructions: Reduce on fried foods (choose grilled chicken instead of chicken iwth the batter and deep fried, choose smaller size fries Drink water with meals Discontinue soda intake walk at least for 30 minutes 3 times a week Coding Level of Care Code Nutr Indiv Subseq (45821) Diagnoses Severe obesity (BMI >= 40) E66.01 Time Spent (min) 30
== END 2022-12-02 13:30 | disposition home or self-care (01) ==
PROVIDERS: PCP Physician Assistant; Visit Provider Dietitian, Registered
DX: E66.01 Morbid (severe) obesity due to excess calories (principal)

== ENCOUNTER → 2022-12-02 12:59 | Outpatient (BNVA) | payer MEDICARE, MEDICAID, SELFPAY | PROVIDERS: PCP Physician Assistant; Visit Provider Dietitian, Registered | DX: E66.01 Morbid (severe) obesity due to excess calories (principal); Z68.43 Body mass index [BMI] 50.0-59.9, adult; Z71.3 Dietary counseling and surveillance | CPT/HCPCS: 97803 ==

== ENCOUNTER 2022-12-07 08:44 | Outpatient (REF) | payer MEDICARE, MEDICAID, SELFPAY ==
--- NOTE | ~2022-12-07 | FL_ITS ---
EXAMINATION: XR FLUOROSCOPY BARIUM SWALLOW WITH AIR CLINICAL INFORMATION: Patient complaining of heartburn and an episode of hemoptysis. COMPARISON: No relevant prior. TECHNIQUE: Fluoroscopic air contrast barium swallow examination was performed utilizing standard techniques with thin and thick barium and effervescent granules. Numerous spot images were obtained, as well as image hold fluoroscopic runs. FINDINGS: Lateral cine images of the oropharynx and hypopharynx demonstrate normal swallow mechanism with largely normal epiglottic inversion and soft palate elevation. No laryngeal penetration. No glottic or subglottic aspiration identified. No nasopharyngeal reflux present. Hypopharyngeal structures appear normal without evidence of mass or diverticulum. There was no significant cricopharyngeal achalasia. Dual and single contrast images of the esophagus demonstrate a mildly patulous esophagus, however normal contour and mucosal pattern. No evidence of stricture, mass, or ulcerations identified. Esophageal peristalsis was normal. A small type I hiatus hernia is present. There was significant gastroesophageal reflux noted numerous times during the course of the examination to the level of the thoracic inlet. No mucosal changes noted in the esophagus or GE junction. Dual contrast and single contrast images of the stomach demonstrated retained food contents within the gastric antrum suggesting gastroparesis. The patient states he did not eat this a.m, and last meal was prior evening. Otherwise, contrast normally passes into the gastric antrum and duodenal bulb without delay. Stomach appears slightly dilated without definite mass or mucosal fold abnormality. No ulcerations evident although there was suboptimal coating of the superior fundus. Single and air-contrast images of the duodenal bulb demonstrate no abnormality. The duodenal sweep has a normal appearance, course, and mucosal fold appearance. The imaged proximal jejunum has a normal fold pattern and caliber. No bony or soft tissue abnormalities are noted. FLUOROSCOPY TIME: 3 minutes, 28 seconds. Number of Spot Images: 10 fluoroscopic spot images taken; 4 fluoroscopic image hold runs obtained. DOSE AREA PRODUCT: 550.2 dGy-cm2 (decigray-centimeter squared) FL/FL barium swallow IMPRESSION: 1. Significant gastroesophageal reflux noted throughout the examination to the level of the thoracic inlet. 2. Small type I hiatus hernia. 3. Residual food contents within a somewhat dilated stomach, suggesting gastroparesis. As per the patient, his last solid meal was prior evening . Of note, residual food contents did limit evaluation of the fine gastric mucosa for subtle ulcerations or inflammation, although no gross changes seen. 4. Normal-appearing duodenal bulb, sweep, and proximal jejunum.
== END 2022-12-07 08:45 | disposition home or self-care (01) ==
LOC: HO.XRAY 08:44
PROVIDERS: PCP Physician Assistant; Visit Provider Physician Assistant
DX: R13.10 Dysphagia, unspecified (principal)
CPT/HCPCS: 74220

== ENCOUNTER → 2022-12-07 08:45 | Outpatient (BNV) | payer MEDICARE, MEDICAID, SELFPAY | PROVIDERS: PCP Physician Assistant; Visit Provider Radiology Diagnostic Radiology | DX: K21.9 Gastro-esophageal reflux disease without esophagitis (principal) | CPT/HCPCS: 74221 ==

== ENCOUNTER 2022-12-21 15:45 | Outpatient (AMB) | payer MEDICARE, MEDICAID, SELFPAY ==
[2022-12-21 15:52] VITALS: BP 138/88; PULSE 110; RESP 17; O2SAT 98; BMI 57.8
--- NOTE | 2022-12-21 15:52 | A.OFFPC_ITS ---
Vital Signs 12/21/22 15:52 Height 5 ft 6 in Weight 358 lb BMI 57.8 BP 138/88 Blood Pressure Location Lt brachial Position Sitting Respiration 17 Pulse 110 H Pulse Source Pulse Oximeter Pulse Oximetry (%) 98 Oxygen Delivery Method Room Air Intake Visit Reasons: 3 MONTH F/U Secy Required: No Accompanied by: Jacky-Appliance Technician Allergies No Known Allergies Allergy (Verified 12/21/22 16:08) Medication List - Last Reconciled 12/21/22 by Tuan Willingham PA-C acetaminophen (Tylenol) 650 mg (2 x 325 mg) PO Q6H PRN aripiprazole 30 mg PO DAILY PRN bisacodyl 5 mg PO BEDTIME 30 days bupropion HCl 300 mg PO DAILY chlorpromazine 200 mg PO BEDTIME 30 days chlorpromazine mg PO haloperidol 5 mg PO BID hydroxyzine HCl 50 mg PO BID lactulose 20 grams (30 mL) PO BID PRN 10 days melatonin mg PO mirtazapine 15 mg PO BEDTIME omeprazole 20 mg PO DAILY psyllium husk (Reguloid (psyllium husk)) 0.4 grams PO BID 30 days sennosides (senna) 17.2 mg (2 x 8.6 mg) PO BEDTIME 90 days Tobacco use date assessed: 04/09/22 HPI 3 MONTH F/U 2 HPI Details Patient is a 22-year-old male here today for a follow-up visit. Patient has a past medical history significant for morbid obesity, GERD,tobacco dependency, major depressive disorder, bipolar disorder and schizophrenia. GERD: Was recently sent for barium swallow study-- > Significant gastroesophageal reflux noted throughout the examination to the level of the thoracic inlet. 2. Small type I hiatus hernia. 3. Residual food contents within a somew hat dilated stomach, suggesting gastroparesis. As per the patient, his last solid meal was prior evening . Of note, residual food contents did limit evaluation of the fine gastric mucosa for subtle ulcerations or inflammation, although no gross changes seen. Was recently inpatient for psychiatric issue. His omeprazole was reduced to 20 mg. Will return back to using 40 mg as he has been reporting some epigastric burning sensation. . . Schizophrenia / bipolar disorder: Fo llowed by psychiatrist whom manages his mental health medications. .. Tobacco dependency: Unfortunately continues to smoke. He would like to try nicotine gum to help reduce his nicotine cravings. .. Obesity: Has unfortunately gained weight since last office visit. Today's BMI of 57. Patient does admit he is not to physically active and has poor eating habits. [facility] Medical History (Updated 12/22/22 @ 07:32 by Tuan Willingham PA-C) Hemoptysis Obese Schizophrenia RBBB Family History Mother Breast cancer, Onset Age: 59 Social History Housing: Assisted Living Facility Alcohol intake: never Patient Tobacco Use Status: Current everyday Tobacco user Tobacco use type: Cigarette Cigarette Packs Per Day: 1 e-Cigarette/Vaping Use: Never Used Second Hand Smoke Exposure: No Substance Use Type: Marijuana service: No Current occupational status: unemployed and disabled Current occupational exposures/hazards: No Cognitive needs: Yes Hearing needs: No Vision needs: No Questionnaire Thrive Questionnaire Date Thrive assessed: 04/09/22 SOILA-7 AMB Questionnaire SOILA-7 Date SOILA - 7 assessed: 06/15/21 Source: Developed by Drs. Andreas Colin, Penny Patel, Matias Diggs and colleagues, with an educational keshav from [employer]. Review of Systems Const Denies headache(s) Eyes Denies loss of vision ENT Denies vertigo, Denies dizziness, Denies headache(s) and Denies sore throat Card Denies chest pain, Denies leg edema and Denies lightheadedness Resp Denies cough, Denies hemoptysis and Denies wheezing GI Reports abdominal pain, Denies melena, Reports constipation, Reports dyspepsia, Denies diarrhea and Denies vomiting Denies dysuria, Denies urinary frequency and Denies urinary urgency Musc Denies arthralgias, Denies joint swelling, Denies numbness and Denies tingling Neuro Denies Abnormal speech present, Denies behavioral changes, Denies vertigo, Denies dizziness, Denies headache(s), Denies loss of vision, Denies memory loss, Denies numbness and Denies tingling Psych Denies anxiety, Denies behavioral changes, Denies depression, Denies memory loss and Denies panic attacks Juice/Lymph Denies easy bleeding and Denies easy bruising Aller/Immun Denies wheezing Physical exam (Primary Care) Vital Signs: Last Vital Signs Pulse 110 H 12/21/22 15:52 Resp 17 12/21/22 15:52 BP 138/88 12/21/22 15:52 Pulse Ox 98 12/21/22 15:52 Oxygen Delivery Method Room Air 12/21/22 15:52 BMI result Body Mass Index 57.8 BMI Assessment/Plan discussion: High Tobacco/Smoking Status: Tobacco use Status Tobacco use date assessed 04/09/22 12/21/22 15:59 Patient Tobacco Use Status Current everyday Tobacco 12/21/22 15:59 Tobacco use type Cigarette 12/21/22 15:59 e-Cigarette/Vaping Use Never Used 12/21/22 15:59 Are you ready to quit: Yes Tobacco cessation counseling provided: Yes Items discussed: Nicotine replacement Relapse Prevention: discussed the importance of a supportive environment, discussed negative mood or depression after quitting, weight gain after smoking is common and discussed dietary, exercise and/or lifestyle changes Number of minutes spent counselin CPT code: 38365 - 4-10 Minutes Thrive Assessment: Date of Thrive Assessment Date Thrive assessed 04/09/22 12/21/22 15:59 Const Other: Morbidly obese General: no acute distress, alert and awake Nutritional Appearance: well nourished Orientation/consciousness: oriented to person, oriented to place and oriented to time HENMT Ears: TM's normal bilaterally General nose exam: Normal nasal mucous membranes and turbinates present Eyes Conjunctivae: conjunctivae normal Sclerae: sclerae normal Pupils: Equal, round and reactive pupils present Neck Neck: Yes no lymphadenopathy and Yes no JVD Thyroid: Thyroid normal Carotids: no bruits Resp Effort & Inspection: normal respiratory effort and not tachypneic Auscultation: no crackles, no rales, no rhonchi and no wheezes Cardio Rate: regular rate Rhythm: regular rhythm Heart sounds: no murmurs and normal S1 and S2 GI Palpation (GI): Soft to palpation, nontender, no hepatomegaly and no splenomegaly Auscultation: normal bowel sounds Skin General skin exam: no rashes or lesions noted and dry skin Neuro General: oriented to person, oriented to place and oriented to time Cranial nerves: Yes Equal, round and reactive pupils present Speech: No Abnormal speech present Gait exam (Neuro): Normal gait present Motor exam (neuro): no tremor noted Extrem Right upper extremity: full ROM Left upper extremity: full ROM Right lower extremity: full ROM; no edema Left lower extremity: full ROM; no edema Psych Mental Status: mental status grossly normal Speech and movement: Normal speech and movement present Affect: normal affect Attitude: cooperative Thought process: Normal thought process present Office Procedures Flu Questionnaire Does the patient have a severe egg allergy?: No Does the patient have severe life threatening allergies?: No Does the patient have a fever or illness today?: No Has the patient ever had Guillain-[place] Syndrome?: No Has the patient ever had any past reaction to a flu shot?: No Immunizations flu vacc [id number] 6mos up(PF) 60 mcg(15 mcgx4)/0.5 mL IM syringe Performing Provider: Tuan Willingham PA-C [facility] Administered by: DEMETRIS Romero on 12/21/22 16:11 Dose Route Admin Location Dispensed Lot Number Expiration Date NDC Furnace Mechanic 0.5 mL IM Left Deltoid 0.5 mL [id number] 09/04/23 [id number] [employer] VIS Given Date VIS Provided VIS Publication Date 12/21/22 Single Vaccine 20 Eligibility Eligibility Date Funding Source Not VFC Eligible 12/21/22 Private Assessment and Plan Assessment & Plan (1) GERD (gastroesophageal reflux disease): Code(s): K21.9 - Gastro-esophageal reflux disease without esophagitis Qualifiers: Esophagitis presence: without esophagitis Qualified Code(s): K21.9 - Gastro-esophageal reflux disease without esophagitis Plan: Recently underwent barium swallow on the did show a moderate amount of gastric reflux. Will return him back to use of omeprazole 40 mg as he has been reporting some epigastric burning and pain.. Advised to reduce gastric irritant foods in his diet. Advised again on weight loss. (2) Gastroparesis: Code(s): K31.84 - Gastroparesis Plan: Most recent barium swallow shows some evidence of gastroparesis. Likely secondary to his psychiatric medication. (3) Hiatal hernia: Code(s): K44.9 - Diaphragmatic hernia without obstruction or gangrene Plan: Had a grade 1 hiatal hernia on most recent barium swallow. (4) Severe obesity (BMI >= 40): Code(s): E66.01 - Morbid (severe) obesity due to excess calories Plan: Patient does understand his BMI is over 50 will work on being more physically active and adapting to better eating habits to reduce his weight (5) Tobacco dependence: Comment: Nicotine patch he removes Smokes at least a pack per day Code(s): F17.200 - Nicotine dependence, unspecified, uncomplicated Plan: Unfortunately patient continues to smoke a pack-a-day, he does understand he needs to quit and thus will try nicotine gum to help him quit smoking. (6) MDD (major depressive disorder), recurrent episode, moderate: Code(s): F33.1 - Major depressive disorder, recurrent, moderate Plan: Patient continues to follow a psychiatrist who manages his mental health medication. (7) Schizophrenia: Code(s): F20.9 - Schizophrenia, unspecified Qualifiers: Schizophrenia type: paranoid schizophrenia Qualified Code(s): F20.0 - Paranoid schizophrenia Plan: Seems to be fairly stable on his antipsychotic medications. Continues to live in a skilled nursing (8) Bipolar disorder: Code(s): F31.9 - Bipolar disorder, unspecified Qualifiers: Active/Remission status: in partial remission Most recent bipolar episode type: manic Qualified Code(s): F31.73 - Bipolar disorder, in partial remission, most recent episode manic Plan: Again followed by Psychiatry who manages mental health medications. (9) Borderline high cholesterol: Code(s): E78.9 - Disorder of lipoprotein metabolism, unspecified Plan: Most recent fasting lipid panel showing borderline high total cholesterol. Advised to get new labs done fasting to evaluate his cholesterol. Orders: Orders Influenza [id number] Immunization 12/21/22 Z23 - Encounter for immunization Comprehensive [place]. Panel Fast 12/21/22 Z13.1 - Encounter for screening for diabetes mellitus Complete Blood Count no Diff 12/21/22 K31.84 - Gastroparesis Lipid Panel 12/21/22 E78.9 - Disorder of lipoprotein metabolism, unspecified Medications: New omeprazole 40 mg PO DAILY 90 days 90 caps 1RF K21.9 - Gastro-esophageal reflux disease without esophagitis nicotine (polacrilex) 2 mg buccal Q2H 30 days 110 ea 0RF nicotine cravings F17.200 - Nicotine dependence, unspecified, uncomplicated Coding Level of Care Code Est Pt Level 4 (57841) Diagnoses Gastroesophageal reflux disease without esophagitis K21.9 Esophagitis presence: without esophagitis Gastroparesis K31.84 Hiatal hernia K44.9 Severe obesity (BMI >= 40) E66.01 Tobacco dependence F17.200 MDD (major depressive disorder), recurrent episode, moderate F33.1 Paranoid schizophrenia F20.0 Schizophrenia type: paranoid schizophrenia Bipolar disorder, in partial remission, most recent episode manic F31.73 Active/Remission status: in partial remission Most recent bipolar episode type: manic Borderline high cholesterol E78.9 Additional Codes Vital Signs *Quality* - CPT code: 68870 - 4-10 Minutes ([id number])
== END 2022-12-21 16:26 | disposition home or self-care (01) ==
PROVIDERS: PCP Physician Assistant; Visit Provider Physician Assistant
DX: Z23 Encounter for immunization (principal)
CPT/HCPCS: 90471; 90686; 99214; 99406

== ENCOUNTER 2023-02-17 14:17 | Outpatient (AMB) | payer MEDICARE, MEDICAID, SELFPAY ==
[2023-02-17 14:19] VITALS: BMI 57.7
--- NOTE | 2023-02-17 14:19 | A.OFFVIS_ITS ---
Intake VS Expanded 02/17/23 14:19 Height 5 ft 6 in Weight 357 lb 12.964 oz BMI 57.7 Intake Visit Reasons: Obesity/CONFIRMED Allergies No Known Allergies Allergy (Verified 12/21/22 16:08) HPI Nutrition Presentation Details Pt presents for MNT for morbid obesity. Pt reports working on having fruits, includes fruits 0-1/3 times/wk physical activity: has not started yet (has treadmill at home and gym membership) Reports finding himself not snacking as he used to Not reading food labels when choosing beverages to have when buying food Most Recent Diabetes Results: No Data to Display [facility] Medical History (Updated 12/22/22 @ 07:32 by Tuan Willingham PA-C) Hemoptysis Obese Schizophrenia RBBB Family History Mother Breast cancer, Onset Age: 59 Social History Housing: Assisted Living Facility Alcohol intake: never Patient Tobacco Use Status: Current everyday Tobacco user Tobacco use type: Cigarette Cigarette Packs Per Day: 1 e-Cigarette/Vaping Use: Never Used Second Hand Smoke Exposure: No Substance Use Type: Marijuana service: No Current occupational status: unemployed and disabled Current occupational exposures/hazards: No Cognitive needs: Yes Hearing needs: No Vision needs: No Assessment & Plan Assessment & Plan (1) Severe obesity (BMI >= 40): Code(s): E66.01 - Morbid (severe) obesity due to excess calories Plan: Work on reducing 500-1000 calories from sugary beverages daily- at follow up (Date: 12/02/22 ): not met date: 02/17/2023: met 50% Used wt : 149 kg (11/2021), 64 kg (11/2022), 163 kg ( 02/2023) Est kcal as per MSJ: 3012-500 = 2512 (40% carb, 30% fat/prot) Est fluid needs:3725 ml/d (25 ml/kg bw) Rec fiber: increase to 8-10 g per day and gradually increase to 35 g or as tolerated Rec Na: < 2000 mg /d Educate patient on: (R= Reviewed, V = verbalizes understanding N/R= Needs review N/A= not applicable) Reviewed relationship of high fat /high sugar and GI side effects and beneficial foods (fruits/yogurts, low fat food options) Patient Instructions: Engage in physical activity, start with 30 minute walks daily Reduce on portions of fried food items (fries, fried breaded food items) Choose beverages with no sugar (water, flavored water with no sugar) Coding Level of Care Code Nutr Indiv Subseq (29553) Diagnoses Severe obesity (BMI >= 40) E66.01 Time Spent (min) 20
== END 2023-02-17 14:44 | disposition home or self-care (01) ==
LOC: HO.ENCR 14:17
PROVIDERS: PCP Physician Assistant; Visit Provider Dietitian, Registered
DX: E66.01 Morbid (severe) obesity due to excess calories (principal)

== ENCOUNTER → 2023-02-17 14:17 | Outpatient (BNVA) | payer MEDICARE, MEDICAID, SELFPAY | PROVIDERS: PCP Physician Assistant; Visit Provider Dietitian, Registered | DX: E66.01 Morbid (severe) obesity due to excess calories (principal); Z68.43 Body mass index [BMI] 50.0-59.9, adult | CPT/HCPCS: 97803 ==

== ENCOUNTER 2023-03-29 14:05 | Outpatient (AMB) | payer MEDICARE, MEDICAID, SELFPAY ==
[2023-03-29 14:10] VITALS: BP 128/72; PULSE 95; O2SAT 96; BMI 57.9
--- NOTE | 2023-03-29 14:10 | A.OFFPC_ITS ---
Vital Signs 03/29/23 14:10 Height 5 ft 6 in Weight 359 lb BMI 57.9 BP 128/72 Blood Pressure Location Lt brachial Position Sitting Pulse 95 Pulse Source Pulse Oximeter Pulse Oximetry (%) 96 Oxygen Delivery Method Room Air Intake Visit Reasons: 3 month f/u [employer]er Required: No Allergies No Known Allergies Allergy (Verified 03/29/23 14:36) Medication List - Last Reconciled 03/29/23 by Tuan Willingham PA-C acetaminophen (Tylenol) 650 mg (2 x 325 mg) PO Q6H PRN aripiprazole 30 mg PO DAILY PRN bisacodyl 5 mg PO BEDTIME 30 days bupropion HCl 300 mg PO DAILY chlorpromazine mg PO diazepam 5 mg PO TID PRN divalproex (Depakote) 250 mg PO BID haloperidol 5 mg PO BID lactulose 20 grams (30 mL) PO BID PRN 10 days lithium carbonate mg PO BID mirtazapine 15 mg PO BEDTIME nicotine (polacrilex) 2 mg buccal Q2H 30 days omeprazole 40 mg PO DAILY 90 days paliperidone ER 9 mg PO DAILY psyllium husk (Reguloid (psyllium husk)) 0.4 grams PO BID 30 days sennosides (senna) 17.2 mg (2 x 8.6 mg) PO BEDTIME 90 days Tobacco use date assessed: 03/29/23 Dental Screening Dental Screen Date: 03/29/23 Did you have a dental visit in the last 12 months?: Yes Did you have a dental problem in the last 6 months where you did not have access to dental care?: No Was dental information given to patient?: Patient has dentist HPI 3 month f/u HPI Details Patient is a 22-year-old male here today for a follow-up visit. Patient has a past medical history significant for morbid obesity, GERD,tobacco dependency, major depressive disorder, bipolar disorder and schizophrenia. GERD: Was recently sent for barium swallow study-- > Significant gas troesophageal reflux noted throughout the examination to the level of the thoracic inlet. 2. Small type I hiatus hernia. 3. Residual food contents within a somew hat dilated stomach, suggesting gastroparesis. As per the patient, his last solid meal was prior evening . Of note, residual food contents did limit evaluation of the fine gastric mucosa for subtle ulcerations or inflammation, although no gross changes seen. Continues to report abdominal pain though has not made any changes in his diet . . Schizophrenia / bipolar disorder: Fo llowed by psychiatrist whom manages his mental health medications. .. Tobacco dependency: Unfortunately continues to smoke. He would like to try nicotine gum to help reduce his nicotine cravings. .. Obesity: Has unfortunately gained weight since last office visit. Today's BMI of 57. Patient does admit he is not to physically active and has poor eating habits. Unfortunately has not gotten any fasting labs done [facility] Medical History Hemoptysis Obese Schizophrenia RBBB Family History Mother Breast cancer, Onset Age: 59 Social History Housing: Assisted Living Facility Alcohol intake: never Patient Tobacco Use Status: Current everyday Tobacco user Tobacco use type: Cigarette Cigarette Packs Per Day: 1 e-Cigarette/Vaping Use: Never Used Second Hand Smoke Exposure: No Substance Use Type: Marijuana service: No Current occupational status: unemployed and disabled Current occupational exposures/hazards: No Cognitive needs: Yes Hearing needs: No Vision needs: No Questionnaire PHQ-9 Over the last 2 weeks, how often have you been bothered by any of the following problems? 1. Little interest or pleasure in doing things: more than half the days 2. Feeling down, depressed, or hopeless: more than half the days 3. Trouble falling or staying asleep, or sleeping too much: more than half the days 4. Feeling tired or having little energy: several days 5. Poor appetite or overeating: several days 6. Feeling bad about yourself - or that you are a failure or have let yourself or your family down: not at all 7. Trouble concentrating on things, such as reading the newspaper or watching television: not at all 8. Moving or speaking so slowly that other people could have noticed. Or the opposite - being so fidgety or restless that you have been moving around a lot more than usual: not at all 9. Thoughts that you would be better off or of hurting yourself in some way: not at all Total score: 8 Depression Screening Interpretation: Positive Depression Screening Follow-up: Existing condition and In treatment Depression Screening Done: Yes 10768 - PHQ-9 Billing: Yes Source: Developed by Drs. Andreas Colin, Matias Mendoza and colleagues, with an educational keshav from [employer]. Thrive Questionnaire Date Thrive assessed: 03/29/23 I am a: Patient What is your living situation today?: I have a steady place to live Within the past 12 months, did the food you bought not last and you didn't have the money to get more?: Never true Within the past 12 months, did you worry whether your food would run out before you got money to buy more?: Never true Do you have trouble paying for medicines?: No Do you have trouble getting transportation to medical appointments?: No Do you have trouble paying your heating and electricity bill?: No Do you have trouble taking care of your child, family member or friend?: No Do you have trouble with day-to-day activities such as bathing, preparing meals, shopping, managing finances, etc.?: No Are you currently unemployed and looking for a job?: No Are you interested in more education?: No Please select the resources that you would like help with: None THRIVE Score: 0 AUDIT C Alcohol Use Questionnaire (AUDIT-C) 1. How often do you have a drink containing alcohol?: Never Total Score: 0 SOILA-7 AMB Questionnaire SOILA-7 Date SOILA - 7 assessed: 03/29/23 Feeling nervous, anxious, or on edge: 0 = Not at all Not being able to stop or control worryin = Not at all Worrying too much about different things: 0 = Not at all Trouble relaxin = Not at all Being so restless that it is hard to sit still: 0 = Not at all Becoming easily annoyed or irritable: 0 = Not at all Feeling afraid as if something awful might happen: 0 = Not at all Total SOILA-7 score (0-4 normal; 5-9 mild; 10-14 moderate; 15-21 severe): 0 Source: Developed by Penny Taylor Kurt Kroenke and colleagues, with an educational keshav from [employer]. SOILA-7 Assessment Billing SOILA-7 Assessment Tool: SOILA-7 Assessment 61181 Review of Systems Const Denies headache(s) Eyes Denies loss of vision ENT Denies vertigo, Denies dizziness, Denies headache(s) and Denies sore throat Card Denies chest pain, Denies leg edema and Denies lightheadedness Resp Denies cough, Denies hemoptysis and Denies wheezing GI Denies abdominal pain, Denies melena, Denies constipation, Denies diarrhea and Denies vomiting Denies dysuria, Denies urinary frequency and Denies urinary urgency Musc Denies arthralgias, Denies joint swelling, Denies numbness and Denies tingling Neuro Denies Abnormal speech present, Denies behavioral changes, Denies vertigo, Denies dizziness, Denies headache(s), Denies loss of vision, Denies memory loss, Denies numbness and Denies tingling Psych Denies anxiety, Denies behavioral changes, Denies depression, Denies memory loss and Denies panic attacks Juice/Lymph Denies easy bleeding and Denies easy bruising Aller/Immun Denies wheezing Physical exam (Primary Care) Vital Signs: Last Vital Signs Pulse 95 03/29/23 14:10 BP 128/72 03/29/23 14:10 Pulse Ox 96 03/29/23 14:10 Oxygen Delivery Method Room Air 03/29/23 14:10 BMI result Body Mass Index 57.9 BMI Assessment/Plan discussion: High Tobacco/Smoking Status: Tobacco use Status Tobacco use date assessed 03/29/23 03/29/23 14:12 Patient Tobacco Use Status Current everyday Tobacco 03/29/23 14:12 Tobacco use type Cigarette 03/29/23 14:12 e-Cigarette/Vaping Use Never Used 03/29/23 14:12 PHQ-9: PHQ-9 Score PHQ-9: Total score 8 03/29/23 14:53 Depression Screening Interpretation: Positive Depression Screening Follow-up: Existing condition and In treatment Thrive Assessment: Date of Thrive Assessment Date Thrive assessed 03/29/23 03/29/23 14:12 Const Other: Morbidly obese General: healthy appearing, no acute distress, alert and awake Nutritional Appearance: well nourished Orientation/consciousness: oriented to person, oriented to place and oriented to time HENMT Ears: TM's normal bilaterally General nose exam: Normal nasal mucous membranes and turbinates present Eyes Conjunctivae: conjunctivae normal Sclerae: sclerae normal Pupils: Equal, round and reactive pupils present Neck Neck: Yes no lymphadenopathy and Yes no JVD Thyroid: Thyroid normal Carotids: no bruits Resp Effort & Inspection: normal respiratory effort and not tachypneic Auscultation: no crackles, no rales, no rhonchi and no wheezes Cardio Rate: regular rate Rhythm: regular rhythm Heart sounds: no murmurs and normal S1 and S2 GI Palpation (GI): Soft to palpation, nontender, no hepatomegaly and no splenomegaly Auscultation: normal bowel sounds Skin General skin exam: no rashes or lesions noted and dry skin Neuro General: oriented to person, oriented to place and oriented to time Cranial nerves: Yes Equal, round and reactive pupils present Speech: No Abnormal speech present Gait exam (Neuro): Normal gait present Motor exam (neuro): no tremor noted Extrem Right upper extremity: full ROM Left upper extremity: full ROM Right lower extremity: full ROM; no edema Left lower extremity: full ROM; no edema Psych Mental Status: mental status grossly normal Speech and movement: Normal speech and movement present Affect: normal affect Attitude: cooperative Thought process: Normal thought process present Assessment and Plan Assessment & Plan (1) GERD (gastroesophageal reflux disease): Code(s): K21.9 - Gastro-esophageal reflux disease without esophagitis Qualifiers: Esophagitis presence: without esophagitis Qualified Code(s): K21.9 - Gastro-esophageal reflux disease without esophagitis Plan: Recently underwent barium swallow on the did show a moderate amount of gastric reflux. Will return him back to use of omeprazole 40 mg as he has been reporting some epigastric burning and pain.. Advised to reduce gastric irritant foods in his diet. Advised again on weight loss. (2) Gastroparesis: Code(s): K31.84 - Gastroparesis Plan: Most recent barium swallow shows some evidence of gastroparesis. Likely secondary to his psychiatric medication. (3) Hiatal hernia: Code(s): K44.9 - Diaphragmatic hernia without obstruction or gangrene Plan: Had a grade 1 hiatal hernia on most recent barium swallow. (4) Severe obesity (BMI >= 40): Code(s): E66.01 - Morbid (severe) obesity due to excess calories Plan: Patient does understand his BMI is over 50 will work on being more physically active and adapting to better eating habits to reduce his weight (5) Tobacco dependence: Comment: Nicotine patch he removes Smokes at least a pack per day Code(s): F17.200 - Nicotine dependence, unspecified, uncomplicated Plan: Unfortunately patient continues to smoke a pack-a-day, he does understand he needs to quit. Has not been able to be compliant with nicotine patches or gum. He has contraindications to starting smoking cessation medication due to his already existing medication. (6) MDD (major depressive disorder), recurrent episode, moderate: Code(s): F33.1 - Major depressive disorder, recurrent, moderate Plan: Patient continues to follow a psychiatrist who manages his mental health medication. (7) Schizophrenia: Code(s): F20.9 - Schizophrenia, unspecified Qualifiers: Schizophrenia type: paranoid schizophrenia Qualified Code(s): F20.0 - Paranoid schizophrenia Plan: Seems to be fairly stable on his antipsychotic medications. Continues to live in a long term. Apparently does smoke weed in today very lethargic though is able to answer questions slowly. (8) Bipolar disorder: Code(s): F31.9 - Bipolar disorder, unspecified Qualifiers: Active/Remission status: in partial remission Most recent bipolar episode type: manic Qualified Code(s): F31.73 - Bipolar disorder, in partial remission, most recent episode manic Plan: Again followed by Psychiatry who manages mental health medications. (9) Borderline high cholesterol: Code(s): E78.9 - Disorder of lipoprotein metabolism, unspecified Plan: Most recent fasting lipid panel showing borderline high total cholesterol. Advised to get new labs done fasting to evaluate his cholesterol. Coding Level of Care Code Est Pt Level 4 (67078) Diagnoses Gastroesophageal reflux disease without esophagitis K21.9 Esophagitis presence: without esophagitis Gastroparesis K31.84 Hiatal hernia K44.9 Severe obesity (BMI >= 40) E66.01 Tobacco dependence F17.200 MDD (major depressive disorder), recurrent episode, moderate F33.1 Paranoid schizophrenia F20.0 Schizophrenia type: paranoid schizophrenia Bipolar disorder, in partial remission, most recent episode manic F31.73 Active/Remission status: in partial remission Most recent bipolar episode type: manic Borderline high cholesterol E78.9 Additional Codes SOILA-7 Assessment Billing - SOILA-7 Assessment Tool: SOILA-7 Assessment 85834 ([id number])
== END 2023-03-29 14:56 | disposition home or self-care (01) ==
PROVIDERS: PCP Physician Assistant; Visit Provider Physician Assistant
DX: K21.9 Gastro-esophageal reflux disease without esophagitis (principal); E66.01 Morbid (severe) obesity due to excess calories; F33.1 Major depressive disorder, recurrent, moderate; F20.0 Paranoid schizophrenia; F31.73 Bipolar disorder, in partial remission, most recent episode manic; Z68.43 Body mass index [BMI] 50.0-59.9, adult; K31.84 Gastroparesis; K44.9 Diaphragmatic hernia without obstruction or gangrene; F17.210 Nicotine dependence, cigarettes, uncomplicated; E78.9 Disorder of lipoprotein metabolism, unspecified
CPT/HCPCS: 99214

== ENCOUNTER 2023-03-30 13:11 | Outpatient (AMB) | payer MEDICARE, MEDICAID, SELFPAY ==
[2023-03-30 13:18] VITALS: BMI 57.4
--- NOTE | 2023-03-30 13:18 | MHC.AMNUTRGE ---
Intake VS Expanded 03/30/23 13:18 Height 5 ft 6 in Weight 355 lb 6.162 oz BMI 57.4 Intake Visit Reasons: Obesity/ wents straight to vm. vm not set up Allergies No Known Allergies Allergy (Verified 03/29/23 14:36) HPI Nutrition Presentation Details Pt presents for MNT follow up for obesity. The Pt reports working on reducing night eating in the last couple of days. Reports walking on a treadmill once a week for 20 minutes. Most Recent Diabetes Results: No Data to Display PFSH Medical History Hemoptysis Obese Schizophrenia RBBB Family History Mother Breast cancer, Onset Age: 59 Social History Housing: Assisted Living Facility Alcohol intake: never Patient Tobacco Use Status: Current everyday Tobacco user Tobacco use type: Cigarette Cigarette Packs Per Day: 1 e-Cigarette/Vaping Use: Never Used Second Hand Smoke Exposure: No Substance Use Type: Marijuana service: No Current occupational status: unemployed and disabled Current occupational exposures/hazards: No Cognitive needs: Yes Hearing needs: No Vision needs: No Assessment & Plan Assessment & Plan (1) Severe obesity (BMI >= 40): Code(s): E66.01 - Morbid (severe) obesity due to excess calories Plan: Work on reducing 500-1000 calories from sugary beverages daily- at follow up (Date: 12/02/22 ): not met date: 02/17/2023: met 50%, 04/06/23 meeting > 50% of the time Used wt : 149 kg (11/2021), 164 kg (11/2022), 163 kg ( 02/2023), 161 kg (03/2023) Est kcal as per MSJ: 3012 (40% carb, 30% fat/prot) Est fluid needs:4830 ml/d (30 ml/kg bw) Rec fiber: increase to 8-10 g per day and gradually increase to 35 g or as tolerated Rec Na: < 2000 mg /d Educate patient on: (R= Reviewed, V = verbalizes understanding N/R= Needs review N/A= not applicable) Reviewed relationship of high fat /high sugar and GI side effects and beneficial foods (fruits/yogurts, low fat food options) physical activity: benefits physically, mentally: R water vs empty calorie beverages: R Reduction of portion/fried foods: R Patient Instructions: Work on having water, flavored water low in sugar, r , aim at 160 oz of no sugar or low sugar fluids per day in place of soda/empty calorie beverages Continue walking at a comfortable pace, make it a routine , 30 minutes 3 times a week Have fiber rich foods (oatmeal at least twice a week, fruits in place of pastries) Coding Level of Care Code Nutr Indiv Subseq (49495) Diagnoses Severe obesity (BMI >= 40) E66.01 Time Spent (min) 30
== END 2023-03-30 13:38 | disposition home or self-care (01) ==
PROVIDERS: PCP Physician Assistant; Visit Provider Dietitian, Registered
DX: E66.01 Morbid (severe) obesity due to excess calories (principal)

== ENCOUNTER → 2023-03-30 13:11 | Outpatient (BNVA) | payer MEDICARE, MEDICAID, SELFPAY | PROVIDERS: PCP Physician Assistant; Visit Provider Dietitian, Registered | DX: E66.01 Morbid (severe) obesity due to excess calories (principal); Z68.43 Body mass index [BMI] 50.0-59.9, adult | CPT/HCPCS: 97803 ==

== ENCOUNTER 2023-05-03 12:15 | Outpatient (REF) | payer MEDICARE, SELFPAY ==
[2023-05-03 13:48] LABS: Hematocrit 43.5 % (42.0-52.0); Hemoglobin 14.1 g/dl (14.0-18.0); Mean Corpuscular HGB Conc 32.4 g/dl (31.0-36.0); Mean Corpuscular Hemoglobin 28.7 pg (27.0-33.0); Mean Corpuscular Volume 88.4 fL (80.0-98.0); Mean Platelet Volume 11.2 fL (9.4-12.4); Platelet Count 375 X10*3/uL (160-400); Red Blood Count 4.92 X10*6/uL (4.60-5.80); White Blood Count 9.8 X10*3/uL (4.8-10.8)
[2023-05-03 14:31] LABS: Alanine Aminotransferase 20 U/L (0-40); Albumin Level 4.5 g/dL (3.5-5.0); Alkaline Phosphatase 62 U/L (39-117); Anion Gap 13 (12-20); Aspartate Amino Transferase 18 U/L (5-37); Bilirubin Total 0.3 mg/dL (0.0-1.0); Blood Urea Nitrogen 7 mg/dL (9-16); Calcium 9.7 mg/dL (8.4-10.2); Carbon Dioxide 27 mmol/L (22-29); Chloride 103 mmol/L (96-108); Cholesterol 154 mg/dL (<200); Estimated Glomerular Filt Rate > 60; Glucose Fasting 86 mg/dL (60-99); HDL Cholesterol 49 mg/dL (>40); LDL Cholesterol Calculated 73 mg/dL (<100); Potassium 3.7 mmol/L (3.3-5.1); Sodium 139 mmol/L (135-145); Total Protein 7.4 g/dL (6.5-8.0); Triglycerides 163 mg/dL (<150)
[2023-05-03 14:36] LABS: TSH reflex Free T4 1.34 uIU/mL (0.32-4.0)
== END 2023-05-03 12:16 | disposition home or self-care (01) ==
LOC: HO.LAB 12:15
PROVIDERS: PCP Physician Assistant; Visit Provider Physician Assistant
DX: Z13.1 Encounter for screening for diabetes mellitus (principal); Z13.29 Encounter for screening for other suspected endocrine disorder; Z13.220 Encounter for screening for lipoid disorders; Z20.2 Contact with and (suspected) exposure to infections with a predominantly sexual mode of transmission
CPT/HCPCS: 36415; 80053; 80061; 84443; 85027

== ENCOUNTER 2023-05-11 12:49 | Outpatient (AMB) | payer MEDICARE, MEDICAID, SELFPAY ==
[2023-05-11 13:23] VITALS: BMI 55.2
--- NOTE | 2023-05-11 13:23 | MHC.AMNUTRGE ---
Intake VS Expanded 05/11/23 13:23 Height 5 ft 6 in Weight 342 lb 2.519 oz BMI 55.2 Intake Visit Reasons: servere obesity/CONFIRMED Allergies No Known Allergies Allergy (Verified 03/29/23 14:36) HPI Nutrition Presentation Details Pt presents for MNT for obesity. Pt reports he is drinking more water, reducing on food portion sizes Reports having 3-5 fruits/day Reports switching to low sugar beverages or diet beverages oatmeal- not including fish- including 1-2x/wk c/o diarrhea Most Recent Diabetes Results: Cholesterol 154 mg/dL (<200) 05/03/23 HDL Cholesterol 49 mg/dL (>40) 05/03/23 Triglycerides 163 mg/dL (<150) H 05/03/23 Creatinine 0.86 mg/dL (0.5-1.4) 05/03/23 Blood Urea Nitrogen 7 mg/dL (9-16) L 05/03/23 Sodium 139 mmol/L (135-145) 05/03/23 Potassium 3.7 mmol/L (3.3-5.1) 05/03/23 Chloride 103 mmol/L (96-108) 05/03/23 Carbon Dioxide 27 mmol/L (22-29) 05/03/23 Calcium 9.7 mg/dL (8.4-10.2) 05/03/23 AST 18 U/L (5-37) 05/03/23 ALT 20 U/L (0-40) 05/03/23 Total Protein 7.4 g/dL (6.5-8.0) 05/03/23 Albumin 4.5 g/dL (3.5-5.0) 05/03/23 [facility] Medical History Hemoptysis Obese Schizophrenia RBBB Family History Mother Breast cancer, Onset Age: 59 Social History Housing: Assisted Living Facility Alcohol intake: never Patient Tobacco Use Status: Current everyday Tobacco user Tobacco use type: Cigarette Cigarette Packs Per Day: 1 e-Cigarette/Vaping Use: Never Used Second Hand Smoke Exposure: No Substance Use Type: Marijuana service: No Current occupational status: unemployed and disabled Current occupational exposures/hazards: No Cognitive needs: Yes Hearing needs: No Vision needs: No Assessment & Plan Assessment & Plan (1) Severe obesity (BMI >= 40): Code(s): E66.01 - Morbid (severe) obesity due to excess calories Plan: Work on reducing 500-1000 calories from sugary beverages daily- at follow up (Date: 12/02/22 ): not met date: 02/17/2023: met 50%, 04/06/23 meeting > 50% of the time, 05/11/23 reports meeting > 100% Used wt : 149 kg (11/2021), 164 kg (11/2022), 163 kg ( 02/2023), 161 kg (03/2023), 155 kg (05/11/23) Est kcal as per MSJ: 3012 (40% carb, 30% fat/prot) Est fluid needs:4830 ml/d (30 ml/kg bw) Rec fiber: increase to 8-10 g per day and gradually increase to 35 g or as tolerated Rec Na: < 2000 mg /d Educate patient on: (R= Reviewed, V = verbalizes understanding N/R= Needs review N/A= not applicable) Reviewed relationship of high fat /high sugar and GI side effects and beneficial foods (fruits/yogurts, low fat food options) physical activity: benefits physically, mentally: R water vs empty calorie beverages: R Reduction of portion/fried foods: R relationship of soluble and insoluble fiber : R sugar alcohols and GI side effects: R Patient Instructions: Continue working on having water with meals/snack Include oatmeal at least twice a week Reduce intake of sugar alcohols (sugar free cookies/chocolates, pastries and similar) which may contribute to diarrhea if consumed in large amounts in some people keep physically active, 30 minutes walk, chair exercises as able or as otherwise specified by your doctor. Coding Level of Care Code Nutr Indiv Subseq (61951) Diagnoses Severe obesity (BMI >= 40) E66.01 Time Spent (min) 20
== END 2023-05-11 13:37 | disposition home or self-care (01) ==
PROVIDERS: PCP Physician Assistant; Visit Provider Dietitian, Registered
DX: E66.01 Morbid (severe) obesity due to excess calories (principal)

== ENCOUNTER → 2023-05-11 12:49 | Outpatient (BNVA) | payer MEDICARE, MEDICAID, SELFPAY | PROVIDERS: PCP Physician Assistant; Visit Provider Dietitian, Registered | DX: E66.01 Morbid (severe) obesity due to excess calories (principal); Z68.43 Body mass index [BMI] 50.0-59.9, adult | CPT/HCPCS: 97803 ==

== ENCOUNTER 2023-06-08 13:13 | Emergency (ER) | payer MEDICARE, MEDICAID, SELFPAY ==
[2023-06-08 13:28] VITALS: BP 147/71; PULSE 76; RESP 20; TEMP 36.5; O2SAT 97; BMI 35.9
--- NOTE | 2023-06-08 13:40 | ED_ITS ---
HPI - Psych General Chief Complaint: Psychiatric Symptoms Stated Complaint: SI Time Seen by Provider: 06/08/23 13:24 Source: patient and old records reviewed Mode of arrival: ambulatory Limitations: no limitations History of Present Illness HPI Narrative: 22 yo male with PMH of HLD, MDD, constipation, bipolar, GERD, schizophrenia, IBS here with c/o SI and feeling depressed he used a wet towel to self harm and rub the skin off of his cheek. Brought in by his [facility] worker. He feels paranoid and has been carrying a rock around to protect him. He states everything at the custodial is okay. MD complaint: suicidal ideation and feels depressed Onset (ago): week(s) Duration: intermittent, changing over time and getting worse History of same: Yes Relieving factors: none Exacerbating factors: other Associated psychiatric symptoms: depression and suicidal ideation Associated symptoms: denies other symptoms Treatments prior to arrival: none If self harm: admits thoughts of self harm and self-inflicted trauma Related Data Home Medications Medication Instructions Recorded Confirmed mirtazapine 15 mg tablet 15 mg PO BEDTIME 06/15/21 03/29/23 aripiprazole 30 mg tablet 30 mg PO DAILY PRN 11/18/21 03/29/23 bupropion HCl 300 mg 24 hr tablet, 300 mg PO DAILY 12/21/22 03/29/23 extended release chlorpromazine 100 mg tablet mg PO 12/21/22 03/29/23 haloperidol 5 mg tablet 5 mg PO BID 12/21/22 03/29/23 diazepam 5 mg tablet 5 mg PO TID PRN 03/29/23 03/29/23 divalproex 250 mg tablet,delayed 250 mg PO BID 03/29/23 03/29/23 release (Depakote) lithium carbonate 300 mg tablet mg PO BID 03/29/23 03/29/23 paliperidone 9 mg tablet,extended 9 mg PO DAILY 03/29/23 03/29/23 release 24 hr Previous Rx's Medication Instructions Recorded acetaminophen 325 mg tablet 650 mg (2 x 325 mg) PO Q6H PRN 09/15/22 (Tylenol) fever or pain #60 tabs lactulose 10 gram/15 mL (15 mL) 20 g (30 mL) PO BID PRN 09/15/22 oral solution constipation 10 days #600 mL sennosides 8.6 mg capsule (senna) 17.2 mg (2 x 8.6 mg) PO BEDTIME 90 09/15/22 days #180 caps nicotine (polacrilex) 2 mg gum 2 mg buccal Q2H nicotine cravings 12/21/22 30 days #110 ea psyllium husk 0.4 gram capsule 0.4 g PO BID 30 days #60 caps 04/13/23 (Reguloid (psyllium husk)) bisacodyl 5 mg tablet 5 mg PO BEDTIME 30 days #30 tabs 05/11/23 omeprazole 40 mg capsule,delayed 40 mg PO DAILY 90 days #90 caps 05/11/23 release Allergies Allergy/AdvReac Type Severity Reaction Status Date / Time No Known Allergies Allergy Verified 03/29/23 14:36 Review of Systems Review of Systems: Constitutional : No Fever, No Chills ENT/Mouth : No Ear Pain, No Nasal Congestion, No sore throat Eyes: No Eye Pain, No Swelling, No Redness Cardiovascular : No Chest Pain, No SOB Respiratory : No Cough, No Sputum, No Dyspnea Gastrointestinal : No Nausea, No Vomiting, No Diarrhea, No Hematochezia, No Melena Genitourinary : No Dysuria, No Urinary Frequency, No Hematuria Musculoskeletal : No Myalgias Skin : No Skin Lesions, No rash Neuro : No Weakness, No Numbness, No Paresthesias, No Dizziness, No Headache Psych : positive Anxiety, positive Depression, positive SI no HI All other systems reviewed and are negative [facility] Past Medical History Attestation statement: The following information was validated with the patient. Source: old records reviewed Medical History Hemoptysis Obese Schizophrenia RBBB Family History Family History Mother Breast cancer, Onset Age: 59 Social History Social History Housing: Assisted Living Facility Unable to assess alcohol history related to: Unknown Alcohol intake: never Patient Tobacco Use Status: Current everyday Tobacco user Tobacco use type: Cigarette Cigarette Packs Per Day: 1 e-Cigarette/Vaping Use: Never Used Second Hand Smoke Exposure: No Substance Use Type: Marijuana service: No Current occupational status: unemployed and disabled Current occupational exposures/hazards: No Cognitive needs: Yes Hearing needs: No Vision needs: No Physical Exam Vital Signs: Appearance: Alert. Oriented X3. No acute distress. Eyes: Pupils equal, round and reactive to light. ENT: Pharynx normal. heart shaped abrasion R hoahaoism superficial Neck: Normal inspection. Neck supple. CVS: Normal heart rate and rhythm. Pulses normal. Respiratory: No respiratory distress. Breath sounds normal. Abdomen: Soft and nontender. Skin: Skin warm and dry. Normal skin color. Normal skin turgor. Extremities: No lower extremity edema. No calf ttp Neuro: Oriented X 3. No motor deficit. No sensory deficit. CN2-12 intact Medical Decision Making Medical Decision Making [facility] Narrative: 22 yo male with PMH of HLD, MDD, constipation, bipolar, GERD, schizophrenia, IBS here with c/o SI and chronic complaints of this has no real plan did self harm face - superficial abrasion will apply bacitracin, obtain labs and CARE team consult. reports compliance with medications he is paranoid and carrying a large rock for protection. Differential Diagnosis Differential Diagnoses: The differential diagnosis associated with the presentation includes chronic SI, self harm Admission/Observation Consideration of admission/observation: Escalation of care including admission/observation considered physician observation started at 2pm pending CARE team input has no medical complaints Consult Healthcare Provider Management of the patient was discussed with: Behavioral Health Provider Lab Data [facility] Lab Attestation statement: I reviewed the patient's lab results. External Record Review External record reviewed: Inpatient record Discharge Plan Discharge Clinical Impression: Chronic schizophrenia, Suicidal ideation, Abrasion Patient Disposition: Still a Patient Prescriptions: No Action psyllium husk [Reguloid (psyllium husk)] 0.4 gram capsule 0.4 g PO BID 30 Days Qty: 60 6RF omeprazole 40 mg capsule,delayed release(DR/EC) 40 mg PO DAILY 90 Days Qty: 90 1RF bisacodyl 5 mg tablet 5 mg PO BEDTIME 30 Days Qty: 30 3RF acetaminophen [Tylenol] 325 mg tablet 650 mg PO Q6H PRN (Reason: fever or pain) Qty: 60 0RF lactulose 10 gram/15 mL (15 mL) solution 20 g PO BID PRN (Reason: constipation) 10 Days Qty: 600 0RF senna 8.6 mg capsule 17.2 mg PO BEDTIME 90 Days Qty: 180 2RF diazepam 5 mg tablet 5 mg PO TID PRN paliperidone 9 mg tablet extended release 24hr 9 mg PO DAILY lithium carbonate 300 mg tablet PO BID divalproex [Depakote] 250 mg tablet,delayed release (DR/EC) 250 mg PO BID mirtazapine 15 mg tablet 15 mg PO BEDTIME haloperidol 5 mg tablet 5 mg PO BID bupropion HCl 300 mg tablet extended release 24 hr 300 mg PO DAILY chlorpromazine 100 mg tablet PO nicotine (polacrilex) 2 mg gum 2 mg buccal Q2H 30 Days Qty: 110 0RF aripiprazole 30 mg tablet 30 mg PO DAILY PRN
[2023-06-08 13:59] LABS: MANUAL DIFF FLAG NO
[2023-06-08 14:01] LABS: Basophils Percent Auto 0.4 % (0-2); Eosinophils Absolute Auto 0.2 X10*3/uL (0.0-0.4); Eosinophils Percent Auto 2.4 % (0-4); Hematocrit 43.9 % (42.0-52.0); Hemoglobin 14.1 g/dl (14.0-18.0); Imm Gran Abs Auto 0.04 X10*3/uL (0.00-0.03); Imm Gran Pct Auto 0.5 % (0.0-0.4); Lymphocytes Absolute Auto 2.9 X10*3/uL (1.2-4.9); Lymphocytes Percent Auto 35.2 % (20-40); Mean Corpuscular HGB Conc 32.1 g/dl (31.0-36.0); Mean Corpuscular Hemoglobin 28.1 pg (27.0-33.0); Mean Corpuscular Volume 87.5 fL (80.0-98.0); Mean Platelet Volume 10.6 fL (9.4-12.4); Monocytes Absolute Auto 0.6 X10*3/uL (0.1-1.2); Monocytes Percent Auto 6.7 % (2-11); Neutrophils Absolute Auto 4.5 x10*3/uL (2.0-8.3); Neutrophils Percent Auto 54.8 % (45-73); Platelet Count 329 X10*3/uL (160-400); Red Blood Count 5.02 X10*6/uL (4.60-5.80); Red Cell Distribution Width 13.4 % (11.0-16.0); White Blood Count 8.2 X10*3/uL (4.8-10.8)
[2023-06-08] MEDS: Bacitracin Oint 0.9 GM PACKET 1 APPL TOPICAL ×2 (14:05→23:17)
[2023-06-08 14:07] LABS: Lithium 0.49 mmol/L (0.60-1.20)
[2023-06-08 14:11] LABS: Valproate 31.9 mcg/mL (50.0-100.0)
[2023-06-08 14:16] LABS: Alanine Aminotransferase 19 U/L (0-40); Albumin Level 4.5 g/dL (3.5-5.0); Alkaline Phosphatase 65 U/L (39-117); Anion Gap 12 (12-20); Aspartate Amino Transferase 21 U/L (5-37); Bilirubin Direct 0.1 mg/dL (0.0-0.5); Bilirubin Total 0.3 mg/dL (0.0-1.0); Blood Urea Nitrogen 8 mg/dL (9-16); Calcium 9.8 mg/dL (8.4-10.2); Carbon Dioxide 27 mmol/L (22-29); Chloride 106 mmol/L (96-108); Creatinine Clr Calc Pharmacy 162.3; Estimated Glomerular Filt Rate > 60; Ethanol < 10 mg/dL; Glucose Random 100 mg/dL (60-115); Potassium 4.1 mmol/L (3.3-5.1); Sodium 141 mmol/L (135-145); Total Protein 7.5 g/dL (6.5-8.0)
--- NOTE | 2023-06-08 15:19 | PC.NURSE ---
pt asleep. med rec to be completed when they wake up.
[2023-06-08 15:22] LABS: Influenza A PCR NEGATIVE (Negative); Influenza B PCR NEGATIVE (Negative); Resp Syncy Virus RNA Qual PCR NEGATIVE (Negative); SARS COV2 PCR INHOUSE NEGATIVE (Negative)
--- NOTE | 2023-06-08 17:14 | PC.NURSE ---
called [facility] contact on contacts list - no answer and not able to leave voicemail. Pt is unsure of the medications that he takes at home and said to call halfway.
[2023-06-08 18:54] LABS: Amphetamine Screen Urine Not Detected (Not Detect); Barbiturates, Urine Not Detected (Not Detect); Benzodiazepines Screen Urine Not Detected (Not Detect); Cannabinoid Screen Urine Not Detected (Not Detect); Cocaine Screen Urine Not Detected (Not Detect); Fentanyl, urine Not Detected (Not Detect); Opiate Screen Urine Not Detected (Not Detect); Phencyclidine Screen Urine Not Detected (Not Detect)
--- NOTE | 2023-06-08 19:27 | PC.NURSE ---
med rec attempted with pharmacy fill list. Pt is unsure what he takes and the [facility] contact number on file is not answering. Per recommendation from pharmacy, complete meds according to pharmacy list, and call [facility] tomorrow morning to see if we can get a more complete med list from them
[2023-06-08 21:22] VITALS: BP 153/79; PULSE 63; RESP 16; TEMP 36.8; O2SAT 98
[2023-06-08] MEDS: Divalproex Sodium 250 MG TABLET.DR PO (22:10)
[2023-06-08] MEDS: LORazepam 1 MG TABLET 2 MG PO (22:10)
[2023-06-08] MEDS: Lithium Carbonate 300 MG CAPSULE 600 MG PO (22:10)
[2023-06-09 06:15] VITALS: BP 144/44; PULSE 85; RESP 16; TEMP 37.1; O2SAT 98
[2023-06-09] MEDS: buPROPion HCl XL 300 MG TAB.ER.24H PO (08:44)
[2023-06-09] MEDS: Paliperidone ER 9 MG TAB.ER.24 PO (08:44)
[2023-06-09] MEDS: Bacitracin Oint 0.9 GM PACKET 1 APPL TOPICAL (08:44)
[2023-06-09] MEDS: Omeprazole 40 MG CAPSULE.DR PO (08:44)
[2023-06-09] MEDS: Divalproex Sodium 250 MG TABLET.DR PO (08:44)
[2023-06-09] MEDS: Lithium Carbonate 300 MG CAPSULE 600 MG PO (08:44)
--- NOTE | 2023-06-09 08:58 | MHC.CARE ---
attempted to reach [facility] residential, [facility] full, not able to leave messages
--- NOTE | 2023-06-09 09:32 | MHC.CARE ---
correct [facility]dc number, . This literary writer awaiting call back from [facility] manager strategic sourcing re: sandrao
--- NOTE | 2023-06-09 12:08 | PC.NURSE ---
Still waiting for [facility] staff to order picker patient. Patient has been discharged since 11am.
--- NOTE | 2023-06-09 13:09 | PC.NURSE ---
Called halfway got voicemail and mail box is full would not let me leave a voicemail.
[2023-06-09 14:02] VITALS: BP 144/44; PULSE 85; RESP 16; TEMP 37.1; O2SAT 98
== END 2023-06-09 14:06 | disposition home or self-care (01) ==
PROVIDERS: Emergency Provider Emergency Medicine; PCP Physician Assistant
DX: R45.851 Suicidal ideations (principal); F20.9 Schizophrenia, unspecified; F32.9 Major depressive disorder, single episode, unspecified; S00.81XA Abrasion of other part of head, initial encounter; X83.8XXA Intentional self-harm by other specified means, initial encounter; Y93.9 Activity, unspecified; Y92.9 Unspecified place or not applicable; Y99.9 Unspecified external cause status; Z03.818 Encounter for observation for suspected exposure to other biological agents ruled out
CPT/HCPCS: 0241U; 36415; 80048; 80076; 80164; 80178; 80307; 85025; 99285; S9485

== ENCOUNTER 2023-06-30 15:28 | Outpatient (AMB) | payer MEDICARE, SELFPAY ==
[2023-06-30 15:49] VITALS: BP 136/70; PULSE 94; O2SAT 96; BMI 47.1
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
== END 2023-06-30 16:20 | disposition home or self-care (01) ==
PROVIDERS: PCP Physician Assistant; Visit Provider Physician Assistant
DX: K21.9 Gastro-esophageal reflux disease without esophagitis (principal); E66.01 Morbid (severe) obesity due to excess calories; Z68.42 Body mass index [BMI] 45.0-49.9, adult; F33.1 Major depressive disorder, recurrent, moderate; F20.0 Paranoid schizophrenia; F31.73 Bipolar disorder, in partial remission, most recent episode manic; F17.200 Nicotine dependence, unspecified, uncomplicated; E78.9 Disorder of lipoprotein metabolism, unspecified; L84 Corns and callosities; M25.572 Pain in left ankle and joints of left foot
CPT/HCPCS: 99214

== ENCOUNTER 2023-08-22 12:37 | Outpatient (AMB) | payer MEDICARE, SELFPAY ==
--- NOTE | 2023-08-22 12:42 | A.OFFVIS_ITS ---
Intake Visit Reasons: Severe obesity/CONFIRMED Allergies No Known Allergies Allergy (Verified 06/30/23 16:03) Nutrition Presentation Details: Pt presents for MNT f/u for Obesity Weight not checked today, Pt vomited prior to this appt as a means of purging. Today we will discuss acute/chronic side effects of vomiting and will continue to encourage healthy eating , balancin meals BS Monitoring Most Recent Diabetes Results: Cholesterol 154 mg/dL (<200) 05/03/23 HDL Cholesterol 49 mg/dL (>40) 05/03/23 Triglycerides 163 mg/dL (<150) H 05/03/23 Creatinine 0.90 mg/dL (0.5-1.4) 06/08/23 Blood Urea Nitrogen 8 mg/dL (9-16) L 06/08/23 Sodium 141 mmol/L (135-145) 06/08/23 Potassium 4.1 mmol/L (3.3-5.1) 06/08/23 Chloride 106 mmol/L (96-108) 06/08/23 Carbon Dioxide 27 mmol/L (22-29) 06/08/23 Calcium 9.8 mg/dL (8.4-10.2) 06/08/23 AST 21 U/L (5-37) 06/08/23 ALT 19 U/L (0-40) 06/08/23 Total Protein 7.5 g/dL (6.5-8.0) 06/08/23 Albumin 4.5 g/dL (3.5-5.0) 06/08/23 PFSH Medical History Hemoptysis Obese Schizophrenia RBBB Family History Mother Breast cancer, Onset Age: 59 Social History Housing: Assisted Living Facility Unable to assess alcohol history related to: Unknown Alcohol intake: never Patient Tobacco Use Status: Current everyday Tobacco user Tobacco use type: Cigarette Cigarette Packs Per Day: 1 e-Cigarette/Vaping Use: Never Used Second Hand Smoke Exposure: No Substance Use Type: Marijuana service: No Current occupational status: unemployed and disabled Current occupational exposures/hazards: No Cognitive needs: Yes Hearing needs: No Vision needs: No Assessment & Plan Assessment & Plan (1) Severe obesity (BMI >= 40): Comment: Pt vomiting after meals as a means of purging Code(s): E66.01 - Morbid (severe) obesity due to excess calories Category: Medical Plan: Reducing empty calorie beverages and choosing water, diluting juices with water , choosing lower sugar beverages Eating slowly, preventing over eating and not vomiting after meals. Used wt : 149 kg (11/2021), 164 kg (11/2022), 163 kg ( 02/2023), 161 kg ( 03/2023), 155 kg (05/11/23) ___not weighed (08/2023) Est kcal as per MSJ: 3012 (40% carb, 30% fat/prot) Est fluid needs:4830 ml/d (30 ml/kg bw) Rec fiber: increase to 8-10 g per day and gradually increase to 35 g or as tolerated Rec Na: < 2000 mg /d Educate patient on: (R= Reviewed, V = verbalizes understanding N/R= Needs review N/A= not applicable) * Negative consequences of Vomiting/purging on health : damage to teeth, gums, acid reflux, CA, constipation, diarrhea, dehydration, tiredness, undernourishment * Nourish the body: eat slowly, follow healthy plate method, reduce on the food portions * Work on not vomiting after meals Patient Instructions: Choose low sugar beverages, water, dilute juices with water, have fruit/herb infused water in place of sodas/sugar containing beverages Eat slowly, chew foods well, enjoy flavors, reduce on current portion of foods following healthy plate method Coding Level of Care Code Nutr Indiv Subseq (26410) Diagnoses Severe obesity (BMI >= 40) E66.01 Time Spent (min) 20
== END 2023-08-22 13:13 | disposition home or self-care (01) ==
PROVIDERS: PCP Physician Assistant; Visit Provider Dietitian, Registered
DX: E66.01 Morbid (severe) obesity due to excess calories (principal)

== ENCOUNTER → 2023-08-22 12:37 | Outpatient (BNVA) | payer MEDICARE, SELFPAY | PROVIDERS: PCP Physician Assistant; Visit Provider Dietitian, Registered | DX: E66.01 Morbid (severe) obesity due to excess calories (principal); Z68.41 Body mass index [BMI] 40.0-44.9, adult; Z71.3 Dietary counseling and surveillance | CPT/HCPCS: 97803 ==

== ENCOUNTER 2023-10-05 15:42 | Outpatient (AMB) | payer MEDICARE, MEDICAID, SELFPAY ==
--- NOTE | 2023-10-05 15:37 | A.OFFPC_ITS ---
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: No Accompanied by: program Allergies No Known Allergies Allergy (Verified 10/05/23 16:06) Medication List - Last Reconciled 10/05/23 by Tuan Willingham PA-C acetaminophen (Tylenol) 650 mg (2 x 325 mg) PO Q6H PRN aripiprazole 30 mg PO DAILY PRN bisacodyl 5 mg PO BEDTIME 30 days bupropion HCl XL 300 mg PO DAILY chlorpromazine mg PO diazepam 5 mg PO TID PRN divalproex 250 mg PO BID haloperidol 5 mg PO BID lactulose 20 grams (30 mL) PO BID PRN 10 days lithium carbonate 600 mg PO BID mirtazapine 15 mg PO BEDTIME nicotine 1 patch transdermal DAILY 14 days omeprazole 40 mg PO DAILY paliperidone ER 9 mg PO DAILY sennosides (senna) 17.2 mg (2 x 8.6 mg) PO BEDTIME Tobacco use date assessed: 03/29/23 Dental Screening Dental Screen Date: 03/29/23 HPI 3mof\u HPI Details Patient is a 23-year-old male here today for a follow-up visit. Patient has a past medical history significant for morbid obesity, GERD,tobacco dependency, major depressive disorder, bipolar disorder and schizophrenia. Constipation: Continues to suffer with constipation. Does have senna available to him. Also has lactulose though refuses to take this medication. = Continues to report abdominal pain though has not made any changes in his diet . . Schizophrenia / bipolar disorder: Followed by psychiatrist whom manages his mental health medications. Has been having some issues with agitation and his mental health meds have been adjusted particularly his divalproex. .. Tobacco dependency: Unfortunately continues to smoke. He knows he needs to quit smoking. He would like to try nicotine patches to help reduce his nicotine cravings. .. [facility] Medical History (Updated 10/06/23 @ 07:21 by Tuan Willingham PA-C) Bleeding hemorrhoid Non-cardiac chest pain Hemoptysis Obese Schizophrenia RBBB Family History Mother Breast cancer, Onset Age: 59 Social History Housing: Assisted Living Facility Unable to assess alcohol history related to: Unknown Alcohol intake: never Patient Tobacco Use Status: Current everyday Tobacco user Tobacco use type: Cigarette Cigarette Packs Per Day: 1 e-Cigarette/Vaping Use: Never Used Second Hand Smoke Exposure: No Substance Use Type: Marijuana service: No Current occupational status: unemployed and disabled Current occupational exposures/hazards: No Cognitive needs: Yes Hearing needs: No Vision needs: No Questionnaire Thrive Questionnaire Date Thrive assessed: 03/29/23 SOILA-7 AMB Questionnaire SOILA-7 Date SOILA - 7 assessed: 03/29/23 Source: Developed by Drs. Andreas Colin, Penny Patel, Matias Diggs and colleagues, with an educational keshav from [employer]. Review of Systems Const Denies headache(s) Eyes Denies loss of vision ENT Denies vertigo, Denies dizziness, Denies headache(s) and Denies sore throat Card Denies chest pain, Denies leg edema and Denies lightheadedness Resp Denies cough, Denies hemoptysis and Denies wheezing GI Denies abdominal pain, Denies melena, Reports constipation, Denies diarrhea and Denies vomiting Denies dysuria, Denies urinary frequency and Denies urinary urgency Musc Denies arthralgias, Denies joint swelling, Denies numbness and Denies tingling Neuro Denies Abnormal speech present, Reports behavioral changes, Denies vertigo, Denies dizziness, Denies headache(s), Denies loss of vision, Denies memory loss, Denies numbness and Denies tingling Psych Denies anxiety, Reports behavioral changes, Denies depression, Denies memory loss, Reports mood swings and Denies panic attacks Juice/Lymph Denies easy bleeding and Denies easy bruising Aller/Immun Denies wheezing Physical exam (Primary Care) Vital Signs: Last Vital Signs Pulse 94 10/05/23 15:47 BP 130/66 10/05/23 15:47 Pulse Ox 97 10/05/23 15:47 Oxygen Delivery Method Room Air 10/05/23 15:47 BMI result Body Mass Index 47.3 BMI Assessment/Plan discussion: High BMI High, discussed plan: lifestyle, weight reduction, dietary and physical activity Tobacco/Smoking Status: Tobacco use Status Tobacco use date assessed 03/29/23 10/05/23 15:38 Patient Tobacco Use Status Current everyday Tobacco 10/05/23 15:38 Tobacco use type Cigarette 10/05/23 15:38 e-Cigarette/Vaping Use Never Used 10/05/23 15:38 Are you ready to quit: No Tobacco cessation counseling provided: Yes Items discussed: Nicotine replacement Relapse Prevention: discussed the importance of a supportive environment, discussed negative mood or depression after quitting and weight gain after smoking is common Number of minutes spent counselin CPT code: 88050 - 4-10 Minutes Thrive Assessment: Date of Thrive Assessment Date Thrive assessed 03/29/23 10/05/23 15:38 Const General: healthy appearing, no acute distress, alert and awake Nutritional Appearance: well nourished Orientation/consciousness: oriented to person, oriented to place and oriented to time HENMT Ears: TM's normal bilaterally General nose exam: Normal nasal mucous membranes and turbinates present Eyes Conjunctivae: conjunctivae normal Sclerae: sclerae normal Pupils: Equal, round and reactive pupils present Neck Neck: Yes no lymphadenopathy and Yes no JVD Thyroid: Thyroid normal Carotids: no bruits Resp Effort & Inspection: normal respiratory effort and not tachypneic Auscultation: no crackles, no rales, no rhonchi and no wheezes Cardio Rate: regular rate Rhythm: regular rhythm Heart sounds: no murmurs and normal S1 and S2 GI Palpation (GI): Soft to palpation, nontender, no hepatomegaly and no splenomegaly Auscultation: normal bowel sounds Skin General skin exam: no rashes or lesions noted and dry skin Neuro General: oriented to person, oriented to place and oriented to time Cranial nerves: Yes Equal, round and reactive pupils present Speech: No Abnormal speech present Gait exam (Neuro): Normal gait present Motor exam (neuro): no tremor noted Extrem Right upper extremity: full ROM Left upper extremity: full ROM Right lower extremity: full ROM; no edema Left lower extremity: full ROM; no edema Psych Mental Status: mental status grossly normal Speech and movement: Normal speech and movement present Affect: normal affect Attitude: cooperative Thought process: Normal thought process present Assessment and Plan Assessment & Plan (1) Tobacco dependence: Comment: Nicotine patch he removes Smokes at least a pack per day Code(s): F17.200 - Nicotine dependence, unspecified, uncomplicated Plan: Unfortunately patient continues to smoke a pack-a-day, he does understand he needs to quit. Has not been able to be compliant with nicotine patches or gum. He has contraindications to starting smoking cessation medication due to his already existing medication. (2) Schizophrenia: Code(s): F20.9 - Schizophrenia, unspecified Qualifiers: Schizophrenia type: paranoid schizophrenia Qualified Code(s): F20.0 - Paranoid schizophrenia Plan: Seems to be fairly stable on his antipsychotic medications. Continues to live in a half-way (to which he will be discharged from in near future) Apparently does smoke weed . He has been having some difficulty with his behaviors and some med adjustments have been made by psychiatrist particular in his mood stabilizer divalproex (3) Bipolar disorder: Code(s): F31.9 - Bipolar disorder, unspecified Qualifiers: Active/Remission status: in partial remission Most recent bipolar episode type: manic Qualified Code(s): F31.73 - Bipolar disorder, in partial remission, most recent episode manic Plan: Again followed by Psychiatry who manages mental health medications. (4) Borderline high cholesterol: Code(s): E78.9 - Disorder of lipoprotein metabolism, unspecified Plan: Most recent fasting lipid panel showing borderline high total cholesterol. Advised to get new labs done fasting to evaluate his cholesterol. Orders: Orders Lipid Panel 10/05/23 E78.9 - Disorder of lipoprotein metabolism, unspecified Complete Blood Count no Diff 10/05/23 E78.9 - Disorder of lipoprotein metabolism, unspecified Comprehensive [place]. Panel Fast 10/05/23 E78.9 - Disorder of lipoprotein meta bolism, unspecified Medications: Changed From divalproex 250 mg PO BID To divalproex 250 mg PO ONCE Coding Level of Care Code Est Pt Level 4 (83977) Diagnoses Tobacco dependence F17.200 Paranoid schizophrenia F20.0 Schizophrenia type: paranoid schizophrenia Bipolar disorder, in partial remission, most recent episode manic F31.73 Active/Remission status: in partial remission Most recent bipolar episode type: manic Borderline high cholesterol E78.9 Additional Codes Vital Signs *Quality* - CPT code: 76932 - 4-10 Minutes ([id number])
[2023-10-05 15:47] VITALS: BP 130/66; PULSE 94; O2SAT 97; BMI 47.3
== END 2023-10-05 16:32 | disposition home or self-care (01) ==
PROVIDERS: PCP Physician Assistant; Visit Provider Physician Assistant
DX: F17.200 Nicotine dependence, unspecified, uncomplicated (principal); F20.0 Paranoid schizophrenia; F31.73 Bipolar disorder, in partial remission, most recent episode manic; E78.9 Disorder of lipoprotein metabolism, unspecified
CPT/HCPCS: 99214; 99406

== ENCOUNTER → 2023-12-05 13:48 | Outpatient (BNVA) | payer MEDICARE, MEDICAID, SELFPAY | PROVIDERS: PCP Physician Assistant; Visit Provider Dietitian, Registered ==